=== PATIENT | female | born 1980 | race Caucasian/White ===

== ENCOUNTER 2017-05-01 10:43 | Observation (INO) | payer MEDICAID, SELFPAY ==
--- NOTE | 2017-04-29 23:30 | HP.PCM_ITS ---
History and Physical Date of Admission: 04/30/17 Referring Provider: Annie Sherman PA-C Primary Provider: Annie Sherman PA-C CC: evaluation hidradenitis. History of Present Illness: 36 year old woman presents with long standing hidradenitis involving her bilateral inguinal and axillary areas and left breast area in the inframammary crease area. She had recent surgery in the left inguinal area on 01/17/17 where she underwent surgical preparation left inguinal area with excision hidradenitis (147 cm2). The resultant wound healed with Doxycycline antibiotics and wound care with the VAC and Silver dressing changes. She now states her left axillary hidradenitis is most bothersome to her at this point, and she presents today for surgical excision in this area. Past Medical History: Anemia Back Problems Bladder/Urinary Tract Inf Diabetes Emotional Problems Headaches/Migraines Hives Hidradenitis Pneumonia Past Surgical History: 10-12-2014 surgical preparation left inguinal area with excision hidradenitis (147 cm2) - 01/17/17 MEDICATIONS: Ibuprofen. MVI. ALLERGIES: Adhesive Tape. Family History Summary: Mother (biol.) - Has Family History of Anemia Mother (biol.) - Has Family History of Anxiety Mother (biol.) - Has Family History of Breast Cancer Mother (biol.) - Has Family History of Hypertension Father (biol.) - Has Family History of Diabetes Father (biol.) - Has Family History of Hypertension Father (biol.) - Has Family History of Kidney/Renal Disease Father (biol.) - Has Family History of Seizures General Comments - FH: negative for skin cancer. Social History: Alcohol Use - yes Drug Use - no Smoking History: Patient currently smokes every day. Regular Exercise - no Review of Systems General Denies fever, fatigue and weight loss. Eyes Denies eye pain. ENT Denies nasal congestion and sore throat. CV Denies chest pain or discomfort, fatigue, lightheadedness and shortness of breath with exertion. Resp Denies cough and shortness of breath. patient is a smoker. GI Denies nausea, vomiting, diarrhea and constipation. Denies blood in urine and urinary frequency. MS Complains of back pain. Denies joint pain, stiffness, muscle weakness and arthritis. Derm Complains of suspicious lesions. Denies skin cancer. has bilateral inguinal and axillary hidradenitis and left breast hidradenitis in the inframammary crease. Neuro Complains of headaches. Psych Complains of anxiety. Denies depression. Endo Denies excessive urination and excessive thirst. Heme Denies bleeding and abnormal bruising. Allergy Complains of hives or rash. Denies seasonal allergies. Vital Signs: Patient Profile: 36 Years Old Female Height: 63 inches Weight: 172 pounds BMI: 30.47 Physical Exam General: well developed, well nourished, in no acute distress. Head: normocephalic and atraumatic. Eyes: PERRL/EOM intact, conjunctiva and sclera clear. Neck: no masses, thyromegaly, or abnormal cervical nodes. Breasts: area of hidradenitis in the left breast inframammary crease. Some erythema. Measures 4 cm. Slightly tender to palpation. No purulent drainage. Lungs: clear bilaterally to auscultation. Heart: non-displaced PMI, chest non-tender; regular rate and rhythm, S1, S2 without murmurs, rubs, or gallops Abdomen: normal bowel sounds; no hepatosplenomegaly no ventral,umbilical hernias or masses noted. had bilateral inguinal hidradenitis with some extension into the pubic area. On the left there is a healed scar from recent surgical excision. There is induration on the right. Tenderness to palpation. No purulent drainage. Measures 10 cm in the right inguinal area. Pulses: pulses normal in all 4 extremities. Extremities: no clubbing, cyanosis, edema. Has bilateral axillary hidradenitis. Induration is present. Some erythema. No purulent drainage. Tenderness to palpation. More so on the left. The left axillary area measures 10 cm and the right axillary area measures 4 cm. Neurologic: cranial nerves II-XII grossly intact. Skin: no rashes. Cervical Nodes: no significant adenopathy. Axillary Nodes: no significant adenopathy. Hard to assess with the amount of tenderness and induration. Inguinal Nodes: no significant adenopathy. Hard to assess with the amount of tenderness and induration. Psych: alert and cooperative; normal mood and affect; normal attention span and concentration. Assessment and Plan 1. Bilateral axillary hidradenitis, worse on the left. 2. Right inguinal hidradenitis. 3. Left breast hidradenitis in inframammary crease. 4. Recent excision left inguinal hidradenitis. 5. Smoker. Recommend excision of her left axillary hidradenitis and send it to Pathology for analysis to rule out carcinoma. Will also send tissue to Microbiology for culture. A positive culture may necessitate antibiotic modification. At surgery, will leave the wound open and proceed with wound care with the VAC or Silver dressing changes. Post discharge will followup at the Wound Center. If there is a plateau in the healing process, will proceed with delayed closure with skin grafting. Surgery will be done under general anesthesia with an overnight stay in the hospital. The patient was informed of the risks and complications of the procedure including alternatives to surgery. These were discussed with the patient personally. The patient voices understanding and wishes to proceed. Some of the risks and complications were included in a form from the [employer]. Encouraged the patient to stop smoking as it may have deleterious effects on wound healing.
[2017-04-30] VITALS (10 sets, daily range): BP systolic 118–144; BP diastolic 70–102; PULSE 70–102; RESP 16–18; TEMP 36.6–38; O2SAT 98–100; BMI 34.3
--- NOTE | 2017-04-30 | HID_PTH ---
PATIENT: CORINNE ADEN LOC: MS2 U#:[id number] AGE/SX: 36/F ROOM: MS216 RE05/01/[address]: Dr. Zi Benedict MD : 1980 BED: 1 DIS: 05/02/2017 SPEC #: [id number] RECD: 04/30/17 14:45 STATUS: ALEXA REAlyssa #: [id number] FREDDY: 04/30/17 00:[address]: Zi Benedict DEPT: SURGICAL PATHOLOGY RECD BY: Chucho Durán ENTERED: 04/30/17 14:45 SP TYPE: [facility] TROTTER DR: Dr. Edwin Collins MD Tissues: Axilla, NOS Procedures: Surgery Specimen Level III HEADER OPERATION: Excision hidradenitis, axilla PRE-OP DIAGNOSIS: Left axillary hidradenitis TISSUE SUBMITTED: Left axillary hidradenitis MICROSCOPIC DIAGNOSIS Skin and soft tissue of left axilla, excision: Consistent with hidradenitis. AM:nancy 05/01/17 MICROSCOPIC DESCRIPTION Slides are reviewed. GROSS DESCRIPTION Received in fixative is one container labeled with the patient's name and designated left axillary hidradenitis. The specimen consists of two irregular fragments of light babcock skin with attached yellow fatty tissue. The smaller fragment measures 4 x 1.5 x 1.5 cm. The larger fragment measures 6 x 4.5 x 1.8 cm. Serial sections do not reveal mass lesions. D[employer] sections are submitted in three cassettes. / AM:nancy 04/30/17 TC:5 CPT: 56517
[2017-04-30 07:02] LABS: Internal QC Validated? YES +Cl - CLEAR BKGD; Pregnancy, Urine Negative Negative
[2017-04-30] MEDS: Cefazolin 2 GM in 0.9% Normal Saline 100 ML IV (08:10)
--- NOTE | 2017-04-30 08:42 | PCM.IMDPSTOP ---
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 Left axillary hidradenitis. 2. Smoker. Post-Operative Diagnosis: Same. Surgery/Procedure Performed:: Surgical preparation left axilla with excision hidradenitis (53.5 cm2). Description of Surgical Findings:: 36 year old woman presents with long standing hidradenitis involving her bilateral inguinal and axillary areas and left breast area in the inframammary crease area. She had recent surgery in the left inguinal area on 01/17/17 where she underwent surgical preparation left inguinal area with excision hidradenitis (147 cm2). The resultant wound healed with Doxycycline antibiotics and wound care with the VAC and Silver dressing changes. She now states her left axillary hidradenitis is most bothersome to her at this point, and she presents today for surgical excision in this area. Today the patient underwent surgical preparation left axilla with excision hidradenitis (53.5 cm2). Size of defect left axilla, superior - 4 x 4 x 2 cm. Size of defect left axilla, inferior - 7.5 x 5 x 3 cm. Length of intervening skin bridge - 4 cm. Estimated Blood Loss: 25 ml. Specimen's removed: Left axillary hidradenitis tissue to Pathology and Microbiology. Drains: None. Type of Anesthesia:: General - Admit VTE Documentation VTE Present on Admission: No VTE Mechan Device Prophylaxis: SCD's VTE Pharm Prophylaxis ordered?: No
--- NOTE | 2017-04-30 11:37 | CASEMGMT ---
DC PLAN: referral received for dc planning of home on discharge with wound vac, [facility]. Referral faxed to [facility]. Will continue to follow and assist with dc planning. Merari SCHMITTN RN ACM
[2017-04-30] MEDS: Docusate Sodium 100 MG Capsule PO ×2 (11:48→20:16)
[2017-04-30] MEDS: Multivitamins,Therapeutic Tablet 1 TABLET PO (11:48)
[2017-04-30] MEDS: oxyCODONE 5 MG Tablet 10 MG PO ×3 (11:48→20:15)
[2017-04-30] MEDS: Cefazolin 1 GM/50 ML BAG IV ×2 (13:36→21:58)
[2017-04-30] MEDS: Mag Hydrox/Al Hydrox/Simeth 30 ML UDC PO ×2 (16:36→21:58)
[2017-04-30] MEDS: diazePAM 5 MG Tablet PO (20:15)
--- NOTE | 2017-04-30 20:39 | PCM.OPRPT ---
Report of Operation Date of Procedure: 04/30/17 Pre-Operative Diagnosis: 1. Left axillary hidradenitis. 2. Smoker. Post-Operative Diagnosis: Same. Surgery/Procedure Performed:: Surgical preparation left axilla with excision hidradenitis (53.5 cm2). Description of Surgical Findings:: 36 year old woman presents with long standing hidradenitis involving her bilateral inguinal and axillary areas and left breast area in the inframammary crease area. She had recent surgery in the left inguinal area on 01/17/17 where she underwent surgical preparation left inguinal area with excision hidradenitis (147 cm2). The resultant wound healed with Doxycycline antibiotics and wound care with the VAC and Silver dressing changes. She now states her left axillary hidradenitis is most bothersome to her at this point, and she presents today for surgical excision in this area. The patient was informed of the risks and complications of the procedure including alternatives to surgery. These were discussed with the patient personally. The patient voices understanding and wishes to proceed. Some of the risks and complications were included in a form from the [employer]. Encouraged the patient to stop smoking as it may have deleterious effects on wound healing. Size of defect left axilla, superior - 4 x 4 x 2 cm. Size of defect left axilla, inferior - 7.5 x 5 x 3 cm. Length of intervening skin bridge - 4 cm. rendering equipment tender: None Type of Anesthesia:: General Specimen's removed: Left axillary hidradenitis tissue to Pathology and Microbiology. Drains: None. Estimated Blood Loss (mL): 25 ml. Description of Procedure: Patient was taken to OR in supine position and was placed under general anesthesia. Her left axillary area was prepped and draped in the usual fashion. SCD's were placed for DVT prophylaxis. Perioperative antibiotics were given intravenously. There were two areas of indurated symptomatic hidradenitis with an intervening skin bridge that clinically appears soft and unaffected by disease at the present time. I will excise both the superior area and inferior area of hidradenitis and leave the skin bridge to allow easier healing. It should also decrease the risk of skin contracture in the future. Using a scalpel, I excised both areas of hidradenitis that were red and tender and indurated. Some fat necrosis was seen in the subcutaneous tissue. No gross pus was seen. Excision extended down to the muscle. No involvement of the muscle was seen. Some of the tissue was sent to Microbiology for culture. The rest of the hidradenitis tissue was sent to Pathology for analysis to rule out carcinoma. Hemostasis obtained with electrocautery. The wound was irrigated with saline. The size of the defects after excision of the hidradenitis was 4 x 4 x 2 cm for the superior axillary wound and 7.5 x 5 x 3 cm for the inferior axillary wound. The intervening skin bridge measures 4 cm. The wounds were dressed with Mepitel nonadherent dressing followed by Kerlix gauze with Betadine followed by a dry Kerlix gauze and an ABD pad followed by an MICHELLE wrap for compression. Patient tolerated the procedure well and was sent to PACU in satisfactory condition. She will be sent upstairs for a surgical observation overnight stay in the hospital. The VAC will be applied tomorrow. Once the VAC is approved and she is tolerating po analgesia, she can go home. She will followup at the Wound Center. She will be sent home on antibiotics and pain medication and Valium for spasm while on the VAC. If there is a plateau in the healing process, can proceed with delayed closure with skin grafting. Grafts/Implants Used: None. - Complications None. - Admit VTE Documentation VTE Present on Admission: No VTE Mechan Device Prophylaxis: SCD's VTE Pharm Prophylaxis ordered?: No Code Visit Surgery Charges CPT - 75527 ICD-10 - L73.2, S41.102A, F17.200
[2017-04-30] MEDS: Lactated Ringers 1,000 ML 60 ML IV (21:58)
[2017-04-30] MEDS: 0.9% NaCl Peripheral Flush Adult/Peds IV (21:58)
[2017-05-01] MEDS: oxyCODONE 5 MG Tablet 10 MG PO ×5 (01:26→18:48)
[2017-05-01 01:46] VITALS: BP 115/81; PULSE 74; RESP 16; TEMP 36.8; O2SAT 99
[2017-05-01] MEDS: diazePAM 5 MG Tablet PO ×2 (05:26→12:41)
[2017-05-01] MEDS: Cefazolin 1 GM/50 ML BAG IV ×3 (05:27→21:52)
[2017-05-01 05:30] VITALS: BP 107/63; PULSE 65; RESP 16; TEMP 36.6; O2SAT 99
[2017-05-01] MEDS: 0.9% NaCl Peripheral Flush Adult/Peds IV ×2 (07:20→21:45)
[2017-05-01 07:54] LABS: Anion Gap 8 (5-15); BUN 13 mg/dL (7-18); Calcium,Total 8.3 mg/dL (8.5-10.1); Chloride 103 mmol/L (98-107); Creatinine, Serum 0.68 mg/dL (0.55-1.02); EST Glomerular Filtration Rate 102 mL/min (>60); Est Glom Filt Rate - Afr Amer 124 mL/min (>60); Estimated Creatinine Clearance 81.36 ml/min; Glucose 104 mg/dL (70-110); Potassium 4.1 mmol/L (3.5-5.1); Prealbumin 29.8 mg/dL (20.0-40.0); Sodium Level 135 mmol/L (136-145)
[2017-05-01 08:06] LABS: Hematocrit 35.8 % (37-47); Hemoglobin 12.1 g/dl (12.0-15.0); Mean Corp Hgb Conc 33.8 g/gl (32-36); Mean Corpuscular Hgb 30.9 pg (27.0-32.0); Mean Corpuscular Volume 91.6 fL (81-99); Mean Platelet Vol. 9.4 fl (6.2-12.0); Platelet Count 278 K/mm3 (150-450); RBC Distribution Width CV 13.1 % (11.6-14.6); RBC Distribution Width SD 43.4 fl (35.1-43.9); Red Blood Count 3.91 M/mm3 (4.2-5.4); White Blood Count 9.4 K/mm3 (4.4-11.0)
[2017-05-01 08:18] LABS: Scan Indicated on CBC? Y/N NO
[2017-05-01] MEDS: Docusate Sodium 100 MG Capsule PO ×2 (09:23→21:56)
[2017-05-01] MEDS: Multivitamins,Therapeutic Tablet 1 TABLET PO (09:23)
--- NOTE | 2017-05-01 10:35 | CASEMGMT ---
[facility] intake called to notify they cannot accept pt. RN CM intro role of CM to patient in room. Discussed alternative HHS. Pt does not have preference. Referral faxed to [facility] Intake dept. [facility]- phone ; fax . will await their determination. -Pt states she has assistance @ home and transportation to wound clinic, physician offices. Merari STAFFORD RN ACM
[2017-05-01] MEDS: Mag Hydrox/Al Hydrox/Simeth 30 ML UDC PO (10:39)
--- NOTE | 2017-05-01 11:26 | NURSING ---
wound photo: left axilla
[2017-05-01 14:30] VITALS: BP 129/76; PULSE 78; RESP 16; TEMP 37.1; O2SAT 99
[2017-05-01] MEDS: Lactated Ringers 1,000 ML 60 ML IV (14:34)
--- NOTE | 2017-05-01 16:28 | CASEMGMT ---
Attempted calls x 2 to [facility] [place]- message left. Have not confirmed home health arrangements for dc yet. [facility] nurse updated. Merari VIDAL BSN ACM
--- NOTE | 2017-05-01 16:55 | PCM.PN.SRG ---
Subjective: Postop #1 Patient is resting comfortably. VAC was applied today. - Physical Exam General: Alert, Oriented x3 HEENT: PERRLA, EOMI Neck: Supple Lungs: Clear to auscultation Cardiovascular: Regular rate, Regular Rhythm Abdomen: Soft, Non-Distended Extremities: No clubbing, No cyanosis, Edema - mild edema in left upper extremity., Peripheral Pulses Normal Skin: Ulcer/ Wound - left axillary wounds are stable. No bleeding. VAC applied today. Awaiting VAC approval. Neurological: Cranial nerves II-XII grossly intact Psych/Mental Status: Normal Affect, Appropriate Vital Signs Temp Pulse Resp BP Pulse Ox 98.7 F 78 16 129/76 H 99 05/01/17 14:30 05/01/17 14:30 05/01/17 14:30 05/01/17 14:30 05/01/17 14:30 Oxygen Delivery Method Room Air Weight: 175 lb 11.335 oz Body Mass Index (BMI) 34.3 Intake and Output for Last 24 Hours 04/29/17 04/30/17 05/01/17 23:59 23:59 23:59 Intake Total 5556 / 5556 2791 / 2791 Output Total 900 / 900 3900 / 3900 Balance 4656 / 4656 -1109 / -1109 Microbiology Past 72 Hours 04/30/17 08:33 Gram Stain - Final Tissue - Incision site Wound Culture - Preliminary No growth-Final to follow Laboratory Tests Past 24 Hrs 05/01/17 05/01/17 06:30 06:30 WBC 9.4 RBC 3.91 L Hgb 12.1 Hct 35.8 L MCV 91.6 MCH 30.9 MCHC 33.8 RDW 13.1 RDW Differential 43.4 Plt Count 278 MPV 9.4 Sodium 135 L Potassium 4.1 Chloride 103 Carbon Dioxide 24.0 Anion Gap 8 BUN 13 Creatinine 0.68 Estim Creat Clear Calc 81.36 Est GFR (MDRD) Af Amer 124 Est GFR (MDRD) Non-Af 102 BUN/Creatinine Ratio 19.0 Glucose 104 Calcium 8.3 L Prealbumin 29.8 Assessment/Plan 1. Left axillary hidradenitis, s/p excision. 2. Smoker. VAC applied today without difficulty. Awaiting VAC approval. Continue IV Ancef. Will send home on Doxycycline. Operative cultures are pending. When cultures are available, antibiotic modification may be necessary. Prealbumin was 29.8. Encourage nutritional supplementation with protein to help the healing process. Anticipate discharge home tomorrow after VAC approved. Followup at Wound Center in 2-3 weeks. Encouraged the patient to stop smoking as it may have deleterious effects on wound healing.
[2017-05-01 21:50] VITALS: BP 138/76; PULSE 76; RESP 20; TEMP 37.1; O2SAT 100
[2017-05-02] MEDS: oxyCODONE 5 MG Tablet 10 MG PO ×3 (01:25→10:34)
[2017-05-02] MEDS: Ondansetron 4 MG/2 ML Vial IV (05:46)
[2017-05-02] MEDS: 0.9% NaCl Peripheral Flush Adult/Peds IV (05:46)
[2017-05-02] MEDS: Cefazolin 1 GM/50 ML BAG IV (05:46)
[2017-05-02 05:49] VITALS: BP 129/82; PULSE 88; RESP 18; TEMP 37.1; O2SAT 99
[2017-05-02 08:40] VITALS: BP 126/90; PULSE 78; RESP 16; TEMP 36.9; O2SAT 99
[2017-05-02] MEDS: Docusate Sodium 100 MG Capsule PO (08:44)
[2017-05-02] MEDS: Multivitamins,Therapeutic Tablet 1 TABLET PO (08:44)
[2017-05-02] MEDS: diazePAM 5 MG Tablet PO (08:48)
--- NOTE | 2017-05-02 10:05 | CASEMGMT ---
Call received from [facility] @ [facility] [place] . They are able to accept pt with start of care on Saturday for wound vac changes. Pt updated. Phone # placed on DC appointments for pt. Merari SCHMITTN RN ACM
--- NOTE | 2017-05-02 12:12 | PN.SURG_ITS ---
Subjective: Postop #2 Patient is resting comfortably. VAC has been approved. Tolerating po analgesia. - Physical Exam General: Alert, Oriented x3 HEENT: PERRLA, EOMI Neck: Supple Lungs: Clear to auscultation Cardiovascular: Regular rate, Regular Rhythm Abdomen: Soft, Non-Distended Skin: Ulcer/ Wound - left axillary wounds stable. VAC in place. Minimal drainage in the canister. Neurological: Cranial nerves II-XII grossly intact Psych/Mental Status: Normal Affect, Appropriate Vital Signs Temp Pulse Resp BP Pulse Ox 98.5 F 78 16 126/90 H 99 05/02/17 08:40 05/02/17 08:40 05/02/17 08:40 05/02/17 08:40 05/02/17 08:40 Oxygen Delivery Method Room Air Weight: 175 lb 11.335 oz Body Mass Index (BMI) 34.3 Intake and Output for Last 24 Hours 04/30/17 05/01/17 05/02/17 23:59 23:59 23:59 Intake Total 5556 / 5556 3698 / 3698 6918 / 6918 Output Total 900 / 900 5300 / 5300 4250 / 4250 Balance 4656 / 4656 -1602 / -1602 2668 / 2668 Microbiology Past 72 Hours 04/30/17 08:33 Gram Stain - Final Tissue - Incision site Wound Culture - Preliminary Gram positive organism Assessment/Plan 1. Left axillary hidradenitis, s/p excision. 2. Smoker. VAC in place. Minimal drainage in the canister. VAC has been approved. Will discharge home on Doxycycline. Operative cultures show Gram positive organism thus far. When cultures are available, antibiotic modification may be necessary. Prealbumin was 29.8. Encourage nutritional supplementation with protein to help the healing process. Discharge home today. Wrote script for Doxycycline for 14 days (28 tabs) and 2 refills. Wrote scripts for Percocet for pain (50 tabs) and for Valium for spasm (40 tabs) . Wrote scripts for Phenergan for nausea (30 tabs) and a refill and for Colace for constipation (60 tabs). Followup at Wound Center in 2-3 weeks. Encouraged the patient to stop smoking as it may have deleterious effects on wound healing.
--- NOTE | 2017-05-02 12:19 | PCM.DC ---
- Discharge Diagnoses Current Active Problems: Current Active and Chronic Problems Smoker (Chronic) Hidradenitis (Chronic) left axillary hidradenitis Open wound of left axillary region (Acute) open surgical hidradenitis wound left axillary area You will use the following diet at home:: No restrictions, Other - encourage nutritional supplementation with protein to help the healing process. Discharge Activity: May not drive while taking narcotic pain medications., May Shower - on the days the vac is changed., - - no heavy lifting. elevate left arm. May shower in (days): 2 - may shower on the days the vac is changed. May resume sexual activity in: No Restrictions Weight Bearing Status: Weight bearing as tolerated Lifting Restrictions: 20 lbs. Keep extremity elevated above heart level: Left Arm Call your doctor if your incision/area has: Continuous Slow Oozing, Sudden Increased Bleeding, Increased Pain/ Swelling, Increased Redness, Foul Smelling Discharge, Swelling at the incision site Call your doctor if you observe: Fever of 101 or Higher, Coldness, Increased Pain, Shortness of breath, Chest pain, Calf discomfort, Uncontrolled pain Suture Line Care: - - vac changes three times per week. Change Dressing in (Days):: 2 - vac changes three times per week. Additional Dressing/Incision Instructions:: Home Health to assist with vac changes to left axilla three times per week at 150 mmHg continuous suction. Allergies/Adverse Reactions: Allergies adhesive tape Allergy (Verified 04/25/17 08:22) Rash Medications to take at Discharge Ibuprofen 200 mg PO PRN PRN 01/11/17 Multivitamin [Multiple Vitamins] 1 each PO DAILY 04/25/17 Diazepam [Valium] 5 mg PO 4X/DAY PRN PRN 10 Days #40 tab 05/02/17 Docusate Sodium [Colace] 100 mg PO BID #60 cap 05/02/17 Doxycycline 100 mg PO BID #28 cap 05/02/17 Mag Hydrox/Al Hydrox/Simeth [Mylanta II] 30 ml PO Q4H PRN PRN udc 05/02/17 Oxycodone HCl/Acetaminophen [Percocet 5/325] 1 - 2 tab PO 4X/DAY PRN PRN 7 Days #50 tab 05/02/17 ProMETHAzine [Phenergan] 25 mg PO 4X/DAY PRN PRN #30 tab 05/02/17 The following prescriptions were given: Diazepam [Valium] 5 mg PO 4X/DAY PRN PRN 10 Days #40 tab PRN Reason: Spasms Oxycodone HCl/Acetaminophen [Percocet 5/325] 1 - 2 tab PO 4X/DAY PRN PRN 7 Days #50 tab PRN Reason: Pain ProMETHAzine [Phenergan] 25 mg PO 4X/DAY PRN PRN #30 tab PRN Reason: NAUSEA/VOMITING Docusate Sodium [Colace] 100 mg PO BID #60 cap Doxycycline 100 mg PO BID #28 cap Primary Care Physician: Edwin Collins MD [Primary Care Provider] - Please Follow Up With: Zi Benedict MD When: 2-3 weeks at wound center. call [phone] for appt. Please Follow Up With: [facility] When: Saturday Proposed Discharge Date: 05/02/17
--- NOTE | 2017-05-02 12:26 | DCINST_ITS ---
- Discharge Diagnoses Current Active Problems: Current Active and Chronic Problems Smoker (Chronic) Hidradenitis (Chronic) left axillary hidradenitis Open wound of left axillary region (Acute) open surgical hidradenitis wound left axillary area You will use the following diet at home:: No restrictions, Other - encourage nutritional supplementation with protein to help the healing process. Discharge Activity: May not drive while taking narcotic pain medications., May Shower - on the days the vac is changed., - - no heavy lifting. elevate left arm. May shower in (days): 2 - may shower on the days the vac is changed. May resume sexual activity in: No Restrictions Weight Bearing Status: Weight bearing as tolerated Lifting Restrictions: 20 lbs. Keep extremity elevated above heart level: Left Arm Call your doctor if your incision/area has: Continuous Slow Oozing, Sudden Increased Bleeding, Increased Pain/ Swelling, Increased Redness, Foul Smelling Discharge, Swelling at the incision site Call your doctor if you observe: Fever of 101 or Higher, Coldness, Increased Pain, Shortness of breath, Chest pain, Calf discomfort, Uncontrolled pain Suture Line Care: - - vac changes three times per week. Change Dressing in (Days):: 2 - vac changes three times per week. Additional Dressing/Incision Instructions:: Home Health to assist with vac changes to left axilla three times per week at 150 mmHg continuous suction. Allergies/Adverse Reactions: Allergies adhesive tape Allergy (Verified 04/25/17 08:22) Rash Medications to take at Discharge Ibuprofen 200 mg PO PRN PRN 01/11/17 Multivitamin [Multiple Vitamins] 1 each PO DAILY 04/25/17 Diazepam [Valium] 5 mg PO 4X/DAY PRN PRN 10 Days #40 tab 05/02/17 Docusate Sodium [Colace] 100 mg PO BID #60 cap 05/02/17 Doxycycline 100 mg PO BID #28 cap 05/02/17 Mag Hydrox/Al Hydrox/Simeth [Mylanta II] 30 ml PO Q4H PRN PRN udc 05/02/17 Oxycodone HCl/Acetaminophen [Percocet 5/325] 1 - 2 tab PO 4X/DAY PRN PRN 7 Days #50 tab 05/02/17 ProMETHAzine [Phenergan] 25 mg PO 4X/DAY PRN PRN #30 tab 05/02/17 The following prescriptions were given: Diazepam [Valium] 5 mg PO 4X/DAY PRN PRN 10 Days #40 tab PRN Reason: Spasms Oxycodone HCl/Acetaminophen [Percocet 5/325] 1 - 2 tab PO 4X/DAY PRN PRN 7 Days #50 tab PRN Reason: Pain ProMETHAzine [Phenergan] 25 mg PO 4X/DAY PRN PRN #30 tab PRN Reason: NAUSEA/VOMITING Docusate Sodium [Colace] 100 mg PO BID #60 cap Doxycycline 100 mg PO BID #28 cap Primary Care Physician: Edwin Collins MD [Primary Care Provider] - Please Follow Up With: Zi Benedict MD When: 2-3 weeks at wound center. call [phone] for appt. Please Follow Up With: [facility] When: Saturday Proposed Discharge Date: 05/02/17
[2017-05-02] MEDS: Ibuprofen 600 MG Tablet PO (13:08)
[2017-05-02 13:22] VITALS: BP 121/81; PULSE 84; RESP 16; TEMP 37.2; O2SAT 100
== END 2017-05-02 14:10 | disposition home health service (06) ==
LOC: SDC 10:57
PROVIDERS: Anesthesiology; Admitting Provider Surgery; Family Provider Family Medicine; PCP Family Medicine; Visit Provider Surgery
PROC: (CPT 11450; principal; 2017-04-30 07:45)
DX: L73.2 Hidradenitis suppurativa (principal); F17.200 Nicotine dependence, unspecified, uncomplicated; E11.9 Type 2 diabetes mellitus without complications; K21.9 Gastro-esophageal reflux disease without esophagitis
CPT/HCPCS: 00400; 11450; 36415; 80048; 81025; 84134; 85027; 87070; 87075; 87077; 87102; 87186; 87205; 87206; 88304; 96365; 96366; 96375; 96376; 99218; J7120; A4216; G0378; G0379; J2405

== ENCOUNTER 2017-05-18 05:22 | Emergency (ER) | payer MEDICAID, SELFPAY ==
[2017-05-18 05:23] VITALS: BP 123/79; PULSE 85; RESP 17; TEMP 36.8; O2SAT 98; BMI 36.7
--- NOTE | 2017-05-18 06:15 | ED.VISSUMM ---
- ER Visit Summary Date of Service: 05/18/17 Chief Complaint: [] Malfunctioning wound VAC. History of Present Illness: The patient is a 37 F [] patient presents after her wound VAC tubing clotted and seems to be no longer functioning. She is here for a wound evaluation and/or wound VAC replacement. Denies fevers. Denies any drainage. Denies any significant increased discomfort. Physical Examination: [] Wound VAC was removed and wound appears to be healing very nicely. No surrounding cellulitis or significant drainage. Remainder of exam is unremarkable. Test Results: [] None Emergency Department Course and Treatment: [] Patient had wound VAC removed and a sterile wet-to-dry dressing was applied. Patient was amenable to this plan. She reports the home health aide who is capable of replacing the wound VAC will be at her house in approximately 12 hours. Treatment Plan: [] Wet-to-dry dressing with removal of wound VAC. Disposition: [] Discharge, stable Impression: [] History hidradenitis suppurativa Wound check This note was generated with [employer] dictation software. It may contain incorrect words, spelling, and punctuation that were not noted in review of the chart prior to signing ED Disposition - Plan for ED Patient: Chief Complaint: Wound Referrals: Edwin Collins MD [Primary Care Provider] -
--- NOTE | 2017-05-18 06:20 | ED.DEP ---
ED Disposition - Plan for ED Patient: Disposition: Home or Assisted Living Chief Complaint: Wound Instructions: Wound Care, Discharge Instructions: Caring for Your Hemovac Drainage Tube Referrals: Edwin Collins MD [Primary Care Provider] -
--- NOTE | 2017-05-18 06:43 | ED.RN ---
DISCHARGE INSTRUCTIONS GIVEN TO AND REVIEWED WITH PATIENT, PATIENT DENIES QUESTIONS OR CONCERNS AND VOICES UNDERSTANDING OF DISCHARGE INSTRUCTIONS. PT AMBULATES OUT OF ROOM WITHOUT DIFFICULTY.
== END 2017-05-18 06:44 | disposition home or self-care (01) ==
PROVIDERS: Emergency Provider Emergency Medicine; Family Provider Family Medicine; PCP Family Medicine
DX: L73.2 Hidradenitis suppurativa (principal); Z48.00 Encounter for change or removal of nonsurgical wound dressing; Z46.89 Encounter for fitting and adjustment of other specified devices; E66.9 Obesity, unspecified; F41.9 Anxiety disorder, unspecified; Z72.0 Tobacco use; Z79.899 Other long term (current) drug therapy
CPT/HCPCS: 99282

== ENCOUNTER 2017-06-03 09:30 | Outpatient (RCR) | payer MEDICAID, SELFPAY ==
[2017-05-20 10:24] VITALS: BP 130/78; PULSE 85; RESP 20; TEMP 37.6; BMI 75.3
[2017-05-20 12:07] VITALS: BMI 75.3
--- NOTE | 2017-05-20 16:45 | PCM.WC.PN ---
Type of Wound Date of Service: 05/20/17 Chief Complaint: Open surgical hidradenitis wound left inguinal area. History of Wound: Surgery 01/17/17 - Surgical preparation left inguinal area with excision hidradenitis (147 cm2). Wound care - VAC. Operative culture - negative. She was treated with Doxycycline perioperatively. Prealbumin from 01/18/17 was 23.5. She takes nutritional supplementation with protein to help the healing process. Today she denies fever. Her appetite is good. - Physical Exam Vital Signs Temp Pulse Resp BP 99.6 F H 85 20 H 130/78 H 05/20/17 10:24 05/20/17 10:24 05/20/17 10:24 05/20/17 10:24 Wound Measurements and Assessment - Nurse 1 - General Ulcer Measurement Start: 05/20/17 10:24 Freq: Status: Active Protocol: Activity Type Activity Date Activity User E-Sign Co-Sign Detail Recorded Client Recorded Date Recorded By Document 05/20/17 10:24 DL [id number] 05/20/17 10:55 DL Document 05/20/17 12:07 DL [id number] 05/20/17 12:15 DL 05/20/17 05/20/17 10:24 12:07 Wound Center Nurse 1 [Ulcer Assessment Protocol: .WD.LOC] #3 L Axilla Inf -Current Size (cm) - Length 1.2 -Current Size (cm) - Width 6.4 -Current Size (cm) - Depth 0.2 -Total Square Cm 7.68 -Photo Taken Yes -Exudate Amt Medium (34-66%) Medium (34-66%) -Exudate Type Serosanguineous Serosanguineous -Wound Margin Distinct, Outline Attached -Granulation Amt Large (67-100%) Medium (34-66%) -Granulation Quality Red Raymond Red -Necrosis Amt None Present (0 Medium (34-66%) %) -Structure Exposed N/A -Texture (Lashell-wound Skin Appearance) No Abnormality -Moisture (Lashell-wound Skin Appearance No Abnormality ) -Color (Lashell-wound Skin Appearance) No Abnormality -Temperature (Lashell-wound Skin No Abnormality Appearance) (Pt Warm) -Tenderness on Palpation (Lashell-wound Yes Skin Appearance) -Ulcer Cleansing Wound Cleanser -Foul Odor after Cleansing No No -Anesthetic Used 4% Lidocaine Solution #2 L Axilla Sup -Current Size (cm) - Length 1.8 -Current Size (cm) - Width 3.5 -Current Size (cm) - Depth 0.7 -Total Square Cm 6.30 -Photo Taken Yes -Classification - Thickness Full Thickness without Exposed Support Structure -Exudate Amt Medium (34-66%) -Exudate Type Serosanguineous -Wound Margin Distinct, Outline Attached -Granulation Amt Large (67-100%) -Granulation Quality Red -Necrosis Amt None Present (0 %) -Structure Exposed N/A -Texture (Lashell-wound Skin Appearance) No Abnormality -Moisture (Lashell-wound Skin Appearance No Abnormality ) -Color (Lashell-wound Skin Appearance) No Abnormality -Tenderness on Palpation (Lashell-wound Yes Skin Appearance) -Ulcer Cleansing Wound Cleanser -Foul Odor after Cleansing No -Anesthetic Used 4% Lidocaine Solution WC - Nurse 2 - General Ulcer CM Notes Start: 05/20/17 10:24 Freq: Status: Active Protocol: Activity Type Activity Date Activity User E-Sign Co-Sign Detail Recorded Client Recorded Date Recorded By Document 05/20/17 11:10 [id number] 05/20/17 11:11 05/20/17 11:10 Wound Center Nurse 2 [Procedure/Treatment] -Time 11:10 -Correct Patient Yes -Correct Side, Site, Position Yes -Correct Procedure Yes -Procedure Performed Yes -Type of Procedure Debridement -Clinical Debridement Subcutaneous -Post Debridement Size (cm) - Length 1.2 -Post Debridement Size (cm) - Width 6.5 -Post Debridement Size (cm) - Depth 0.2 -Total Square Cm 7.80 -Wound/Ulcer Outcome Not Healed -Ulcer Cleansing Rinsed/ Irrigated with Saline -Foul Odor after Cleansing No -Bioengineered Tissue No -Bleeding Controlled with Pressure -Treatment Response Procedure Tolerated Well #2 L Axilla Sup -Time 11:10 -Correct Patient Yes -Correct Side, Site, Position Yes -Correct Procedure Yes -Procedure Performed Yes -Type of Procedure Debridement -Clinical Debridement Subcutaneous -Post Debridement Size (cm) - Length 1.8 -Post Debridement Size (cm) - Width 3.6 -Post Debridement Size (cm) - Depth 0.7 -Total Square Cm 6.48 -Wound/Ulcer Outcome Not Healed -Ulcer Cleansing Rinsed/ Irrigated with Saline -Foul Odor after Cleansing No -Bioengineered Tissue No -Bleeding Controlled with Pressure -Treatment Response Procedure Tolerated Well [See Physician Procedure note for Specifics] Pain Scale: 0-10 Numeric [Pain] -Is Patient Pain Free? Yes Debridement Note Post-Debridement Measurements/Treatment WC - Nurse 2 - General Ulcer CM Notes Start: 05/20/17 10:24 Freq: Status: Active Protocol: Activity Type Activity Date Activity User E-Sign Co-Sign Detail Recorded Client Recorded Date Recorded By Document 05/20/17 11:10 [email or web address] [id number] 05/20/17 11:11 [email or web address] 05/20/17 11:10 Wound Center Nurse 2 #3 L Axilla Inf -Time 11:10 -Correct Patient Yes -Correct Side, Site, Position Yes -Correct Procedure Yes -Procedure Performed Yes -Type of Procedure Debridement -Clinical Debridement Subcutaneous -Post Debridement Size (cm) - Length 1.2 -Post Debridement Size (cm) - Width 6.5 -Post Debridement Size (cm) - Depth 0.2 -Total Square Cm 7.80 -Wound/Ulcer Outcome Not Healed -Ulcer Cleansing Rinsed/ Irrigated with Saline -Foul Odor after Cleansing No -Bioengineered Tissue No -Bleeding Controlled with Pressure -Treatment Response Procedure Tolerated Well #2 L Axilla Sup -Time 11:10 -Correct Patient Yes -Correct Side, Site, Position Yes -Correct Procedure Yes -Procedure Performed Yes -Type of Procedure Debridement -Clinical Debridement Subcutaneous -Post Debridement Size (cm) - Length 1.8 -Post Debridement Size (cm) - Width 3.6 -Post Debridement Size (cm) - Depth 0.7 -Total Square Cm 6.48 -Wound/Ulcer Outcome Not Healed -Ulcer Cleansing Rinsed/ Irrigated with Saline -Foul Odor after Cleansing No -Bioengineered Tissue No -Bleeding Controlled with Pressure -Treatment Response Procedure Tolerated Well Pain Scale: 0-10 Numeric Is Patient Pain Free? Yes Wound debrided: #2 Left axilla, superior. Laterality: Left Wound Grade/Stage: 2. Type of Debridement: Excisional debridement Anesthesia Used: 4% Lidocaine Solution Depth: Down to and including healthy tissue, in the subcutaneous layer Percentage of wound debrided: 100 Instrument Used: 5mm curette Tissue Removed: subcutaneous tissue. Severity: Fat Layer Exposed Amount of bleeding with debridement: Mild Bleeding Controlled with: Pressure Patient tolerated procedure well - Additional Wound Wound debrided: #3 Left axilla, inferior. Laterality: Left Wound Grade/Stage: 2. Type of Debridement: Excisional debridement Anesthesia Used: 4% Lidocaine Solution Depth: Down to and including healthy tissue Percentage of wound debrided: 100 Instrument Used: 5mm curette Tissue Removed: subcutaneous tissue. Severity: Fat Layer Exposed Amount of bleeding with debridement: Mild Bleeding Controlled with: Pressure Patient tolerated procedure: Patient tolerated procedure well Assessment/Plan Assessment: 1. Open surgical hidradenitis wound left inguinal area. 2. Left inguinal hidradenitis. 3. Smoker. 4. s/p surgical preparation left inguinal area with excision hidradenitis (147 cm2). Plan: Continue VAC. She has finished her Doxycycline from the surgery. The operative culture was negative. Prealbumin from 01/18/17 was 23.5. She takes nutritional supplementation with protein to help the healing process. Renewed her Percocet for pain (50 tabs). Renewed her Valium for spasm (30 tabs). Renewed her Colace for constipation (60 tabs). Encouraged the patient to stop smoking as it may have deleterious effects on wound healing. Followup 3 weeks.
[2017-06-03 09:44] VITALS: BP 130/83; PULSE 92; RESP 16; TEMP 37.5; BMI 75.3
--- NOTE | 2017-06-03 18:21 | PCM.WC.PN ---
Type of Wound Date of Service: 06/03/17 Chief Complaint: Open surgical hidradenitis wound left inguinal area. History of Wound: Surgery 01/17/17 - Surgical preparation left inguinal area with excision hidradenitis (147 cm2). Wound care - VAC. Operative culture - negative. She was treated with Doxycycline perioperatively. Prealbumin from 01/18/17 was 23.5. She takes nutritional supplementation with protein to help the healing process. Today she denies fever. Her appetite is good. - Physical Exam Vital Signs Temp Pulse Resp BP 99.5 F H 92 16 130/83 H 06/03/17 09:44 06/03/17 09:44 06/03/17 09:44 06/03/17 09:44 Wound Measurements and Assessment WC - Nurse 1 - General Ulcer Measurement Start: 05/20/17 10:24 Freq: Status: Active Protocol: Activity Type Activity Date Activity User E-Sign Co-Sign Detail Recorded Client Recorded Date Recorded By Document 06/03/17 09:44 [facility] [id number] 06/03/17 10:01 [facility] 06/03/17 09:44 Wound Center Nurse 1 [Ulcer Assessment] #3 L Axilla Inf -Combined with other wound No -Current Size (cm) - Length 0.1 -Current Size (cm) - Width 3.3 -Current Size (cm) - Depth 0.1 -Total Square Cm 0.33 -Photo Taken No -Epithelialization Medium 34-66% -Tunneling No -Undermining/Tunneling No -Exudate Amt Small (1-33%) -Exudate Type Serous -Wound Margin Distinct, Outline Attached -Granulation Amt Large (67-100%) -Granulation Quality Red -Slough/Fibrin No -Necrosis Amt None Present (0 %) -Structure Exposed None/Limited to Skin Breakdown -Texture (Lashell-wound Skin Appearance) Scarring -Moisture (Lashell-wound Skin Appearance Maceration ) -Color (Lashell-wound Skin Appearance) Assessed -Temperature (Lashell-wound Skin No Abnormality Appearance) (Pt Warm) -Tenderness on Palpation (Lashell-wound No Skin Appearance) -Ulcer Cleansing Wound Cleanser -Foul Odor after Cleansing No -Anesthetic Used 4% Lidocaine Solution #2 L Axilla Sup -Combined with other wound No -Current Size (cm) - Length 0.7 -Current Size (cm) - Width 1.7 -Current Size (cm) - Depth 0.1 -Total Square Cm 1.19 -Photo Taken No -Epithelialization Medium 34-66% -Tunneling No -Undermining/Tunneling No -Exudate Amt Small (1-33%) -Exudate Type Serous -Wound Margin Distinct, Outline Attached -Granulation Amt Large (67-100%) -Granulation Quality Red -Slough/Fibrin No -Necrosis Amt None Present (0 %) -Structure Exposed None/Limited to Skin Breakdown -Texture (Lashell-wound Skin Appearance) Scarring -Moisture (Lashell-wound Skin Appearance Maceration ) -Color (Lashell-wound Skin Appearance) Assessed -Temperature (Lashell-wound Skin No Abnormality Appearance) (Pt Warm) -Tenderness on Palpation (Lashell-wound No Skin Appearance) -Foul Odor after Cleansing No -Anesthetic Used 4% Lidocaine Solution WC - Nurse 2 - General Ulcer CM Notes Start: 05/20/17 10:24 Freq: Status: Active Protocol: Activity Type Activity Date Activity User E-Sign Co-Sign Detail Recorded Client Recorded Date Recorded By Document 06/03/17 10:21 [id number] 06/03/17 10:22 06/03/17 10:21 Wound Center Nurse 2 [Procedure/Treatment] #3 L Axilla Inf -Time 10:21 -Correct Patient Yes -Correct Side, Site, Position Yes -Correct Procedure Yes -Procedure Performed Yes -Type of Procedure Debridement -Clinical Debridement Subcutaneous -Post Debridement Size (cm) - Length 0.2 -Post Debridement Size (cm) - Width 3.3 -Post Debridement Size (cm) - Depth 0.1 -Total Square Cm 0.66 -Wound/Ulcer Outcome Not Healed -Ulcer Cleansing Rinsed/ Irrigated with Saline -Foul Odor after Cleansing No -Bioengineered Tissue No -Bleeding Controlled with Pressure -Treatment Response Procedure Tolerated Well #2 L Axilla Sup -Time 10:22 -Correct Patient Yes -Correct Side, Site, Position Yes -Correct Procedure Yes -Procedure Performed Yes -Type of Procedure Debridement -Clinical Debridement Subcutaneous -Post Debridement Size (cm) - Length 0.8 -Post Debridement Size (cm) - Width 1.8 -Post Debridement Size (cm) - Depth 0.1 -Total Square Cm 1.44 -Wound/Ulcer Outcome Not Healed -Ulcer Cleansing Rinsed/ Irrigated with Saline -Foul Odor after Cleansing No -Bioengineered Tissue No -Bleeding Controlled with Pressure -Treatment Response Procedure Tolerated Well [See Physician Procedure note for Specifics] Pain Scale: 0-10 Numeric [Pain] -Is Patient Pain Free? Yes Debridement Note Post-Debridement Measurements/Treatment WC - Nurse 2 - General Ulcer CM Notes Start: 05/20/17 10:24 Freq: Status: Active Protocol: Activity Type Activity Date Activity User E-Sign Co-Sign Detail Recorded Client Recorded Date Recorded By Document 05/20/17 11:10 [id number] 05/20/17 11:11 Document 06/03/17 10:21 [id number] 06/03/17 10:22 05/20/17 06/03/17 11:10 10:21 Wound Center Nurse 2 #3 L Axilla Inf -Time 11:10 10:21 -Correct Patient Yes Yes -Correct Side, Site, Position Yes Yes -Correct Procedure Yes Yes -Procedure Performed Yes Yes -Type of Procedure Debridement Debridement -Clinical Debridement Subcutaneous Subcutaneous -Post Debridement Size (cm) - Length 1.2 0.2 -Post Debridement Size (cm) - Width 6.5 3.3 -Post Debridement Size (cm) - Depth 0.2 0.1 -Total Square Cm 7.80 0.66 -Wound/Ulcer Outcome Not Healed Not Healed -Ulcer Cleansing Rinsed/ Rinsed/ Irrigated with Irrigated with Saline Saline -Foul Odor after Cleansing No No -Bioengineered Tissue No No -Bleeding Controlled with Pressure Pressure -Treatment Response Procedure Procedure Tolerated Well Tolerated Well #2 L Axilla Sup -Time 11:10 10:22 -Correct Patient Yes Yes -Correct Side, Site, Position Yes Yes -Correct Procedure Yes Yes -Procedure Performed Yes Yes -Type of Procedure Debridement Debridement -Clinical Debridement Subcutaneous Subcutaneous -Post Debridement Size (cm) - Length 1.8 0.8 -Post Debridement Size (cm) - Width 3.6 1.8 -Post Debridement Size (cm) - Depth 0.7 0.1 -Total Square Cm 6.48 1.44 -Wound/Ulcer Outcome Not Healed Not Healed -Ulcer Cleansing Rinsed/ Rinsed/ Irrigated with Irrigated with Saline Saline -Foul Odor after Cleansing No No -Bioengineered Tissue No No -Bleeding Controlled with Pressure Pressure -Treatment Response Procedure Procedure Tolerated Well Tolerated Well Pain Scale: 0-10 Numeric Is Patient Pain Free? Yes Yes Wound debrided: #2 Left axilla, superior. Laterality: Left Wound Grade/Stage: 2. Type of Debridement: Excisional debridement Anesthesia Used: 4% Lidocaine Solution Depth: Down to and including healthy tissue, in the subcutaneous layer Percentage of wound debrided: 100 Instrument Used: 5mm curette Tissue Removed: subcutaneous tissue. Severity: Fat Layer Exposed Amount of bleeding with debridement: Mild Bleeding Controlled with: Pressure Patient tolerated procedure well - Additional Wound Wound debrided: #3 Left axilla, inferior. Laterality: Left Wound Grade/Stage: 2. Type of Debridement: Excisional debridement Anesthesia Used: 4% Lidocaine Solution Depth: Down to and including healthy tissue, in the subcutaneous layer Percentage of wound debrided: 100 Instrument Used: 5mm curette Tissue Removed: subcutaneous tissue. Severity: Fat Layer Exposed Amount of bleeding with debridement: Mild Bleeding Controlled with: Pressure Patient tolerated procedure: Patient tolerated procedure well Assessment/Plan Assessment: 1. Open surgical hidradenitis wound left inguinal area. 2. Left inguinal hidradenitis. 3. Smoker. 4. s/p surgical preparation left inguinal area with excision hidradenitis (147 cm2). Plan: Continue VAC. She has finished her Doxycycline from the surgery. The operative culture was negative. Prealbumin from 01/18/17 was 23.5. She takes nutritional supplementation with protein to help the healing process. Renewed her Percocet for pain (50 tabs). Renewed her Valium for spasm (30 tabs). Renewed her Colace for constipation (60 tabs). Encouraged the patient to stop smoking as it may have deleterious effects on wound healing. Followup 3 weeks.
--- NOTE | 2017-06-05 00:02 | PN.PCM_ITS ---
Type of Wound Date of Service: 06/03/17 Chief Complaint: Open surgical hidradenitis wound left inguinal area. History of Wound: Surgery 01/17/17 - Surgical preparation left inguinal area with excision hidradenitis (147 cm2). Wound care - VAC. Operative culture - negative. She was treated with Doxycycline perioperatively. Prealbumin from was 23.5. She takes nutritional supplementation with protein to help the healing process. Today she denies fever. Her appetite is good. - Physical Exam Vital Signs Temp Pulse Resp BP 99.5 F H 92 16 130/83 H 06/03/17 09:44 06/03/17 09:44 06/03/17 09:44 06/03/17 09:44 Wound Measurements and Assessment WC - Nurse 1 - General Ulcer Measurement Start: 05/20/17 10:24 Freq: Status: Active Protocol: Activity Type Activity Date Activity User E-Sign Co-Sign Detail Recorded Client Recorded Date Recorded By Document 06/03/17 09:44 [facility] [id number] 06/03/17 10:01 [facility] 06/03/17 09:44 Wound Center Nurse 1 [Ulcer Assessment] #3 L Axilla Inf -Combined with other wound No -Current Size (cm) - Length 0.1 -Current Size (cm) - Width 3.3 -Current Size (cm) - Depth 0.1 -Total Square Cm 0.33 -Photo Taken No -Epithelialization Medium 34-66% -Tunneling No -Undermining/Tunneling No -Exudate Amt Small (1-33%) -Exudate Type Serous -Wound Margin Distinct, Outline Attached -Granulation Amt Large (67-100%) -Granulation Quality Red -Slough/Fibrin No -Necrosis Amt None Present (0 %) -Structure Exposed None/Limited to Skin Breakdown -Texture (Lashell-wound Skin Appearance) Scarring -Moisture (Lashell-wound Skin Appearance Maceration ) -Color (Lashell-wound Skin Appearance) Assessed -Temperature (Lashell-wound Skin No Abnormality Appearance) (Pt Warm) -Tenderness on Palpation (Lashell-wound No Skin Appearance) -Ulcer Cleansing Wound Cleanser -Foul Odor after Cleansing No -Anesthetic Used 4% Lidocaine Solution #2 L Axilla Sup -Combined with other wound No -Current Size (cm) - Length 0.7 -Current Size (cm) - Width 1.7 -Current Size (cm) - Depth 0.1 -Total Square Cm 1.19 -Photo Taken No -Epithelialization Medium 34-66% -Tunneling No -Undermining/Tunneling No -Exudate Amt Small (1-33%) -Exudate Type Serous -Wound Margin Distinct, Outline Attached -Granulation Amt Large (67-100%) -Granulation Quality Red -Slough/Fibrin No -Necrosis Amt None Present (0 %) -Structure Exposed None/Limited to Skin Breakdown -Texture (Lashell-wound Skin Appearance) Scarring -Moisture (Lashell-wound Skin Appearance Maceration ) -Color (Lashell-wound Skin Appearance) Assessed -Temperature (Lashell-wound Skin No Abnormality Appearance) (Pt Warm) -Tenderness on Palpation (Lashell-wound No Skin Appearance) -Foul Odor after Cleansing No -Anesthetic Used 4% Lidocaine Solution WC - Nurse 2 - General Ulcer CM Notes Start: 05/20/17 10:24 Freq: Status: Active Protocol: Activity Type Activity Date Activity User E-Sign Co-Sign Detail Recorded Client Recorded Date Recorded By Document 06/03/17 10:21 [id number] 06/03/17 10:22 06/03/17 10:21 Wound Center Nurse 2 [Procedure/Treatment] #3 L Axilla Inf -Time 10:21 -Correct Patient Yes -Correct Side, Site, Position Yes -Correct Procedure Yes -Procedure Performed Yes -Type of Procedure Debridement -Clinical Debridement Subcutaneous -Post Debridement Size (cm) - Length 0.2 -Post Debridement Size (cm) - Width 3.3 -Post Debridement Size (cm) - Depth 0.1 -Total Square Cm 0.66 -Wound/Ulcer Outcome Not Healed -Ulcer Cleansing Rinsed/ Irrigated with Saline -Foul Odor after Cleansing No -Bioengineered Tissue No -Bleeding Controlled with Pressure -Treatment Response Procedure Tolerated Well #2 L Axilla Sup -Time 10:22 -Correct Patient Yes -Correct Side, Site, Position Yes -Correct Procedure Yes -Procedure Performed Yes -Type of Procedure Debridement -Clinical Debridement Subcutaneous -Post Debridement Size (cm) - Length 0.8 -Post Debridement Size (cm) - Width 1.8 -Post Debridement Size (cm) - Depth 0.1 -Total Square Cm 1.44 -Wound/Ulcer Outcome Not Healed -Ulcer Cleansing Rinsed/ Irrigated with Saline -Foul Odor after Cleansing No -Bioengineered Tissue No -Bleeding Controlled with Pressure -Treatment Response Procedure Tolerated Well [See Physician Procedure note for Specifics] Pain Scale: 0-10 Numeric [Pain] -Is Patient Pain Free? Yes Debridement Note Post-Debridement Measurements/Treatment WC - Nurse 2 - General Ulcer CM Notes Start: 05/20/17 10:24 Freq: Status: Active Protocol: Activity Type Activity Date Activity User E-Sign Co-Sign Detail Recorded Client Recorded Date Recorded By Document 05/20/17 11:10 [id number] 05/20/17 11:11 Document 06/03/17 10:21 [id number] 06/03/17 10:22 05/20/17 06/03/17 11:10 10:21 Wound Center Nurse 2 #3 L Axilla Inf -Time 11:10 10:21 -Correct Patient Yes Yes -Correct Side, Site, Position Yes Yes -Correct Procedure Yes Yes -Procedure Performed Yes Yes -Type of Procedure Debridement Debridement -Clinical Debridement Subcutaneous Subcutaneous -Post Debridement Size (cm) - Length 1.2 0.2 -Post Debridement Size (cm) - Width 6.5 3.3 -Post Debridement Size (cm) - Depth 0.2 0.1 -Total Square Cm 7.80 0.66 -Wound/Ulcer Outcome Not Healed Not Healed -Ulcer Cleansing Rinsed/ Rinsed/ Irrigated with Irrigated with Saline Saline -Foul Odor after Cleansing No No -Bioengineered Tissue No No -Bleeding Controlled with Pressure Pressure -Treatment Response Procedure Procedure Tolerated Well Tolerated Well #2 L Axilla Sup -Time 11:10 10:22 -Correct Patient Yes Yes -Correct Side, Site, Position Yes Yes -Correct Procedure Yes Yes -Procedure Performed Yes Yes -Type of Procedure Debridement Debridement -Clinical Debridement Subcutaneous Subcutaneous -Post Debridement Size (cm) - Length 1.8 0.8 -Post Debridement Size (cm) - Width 3.6 1.8 -Post Debridement Size (cm) - Depth 0.7 0.1 -Total Square Cm 6.48 1.44 -Wound/Ulcer Outcome Not Healed Not Healed -Ulcer Cleansing Rinsed/ Rinsed/ Irrigated with Irrigated with Saline Saline -Foul Odor after Cleansing No No -Bioengineered Tissue No No -Bleeding Controlled with Pressure Pressure -Treatment Response Procedure Procedure Tolerated Well Tolerated Well Pain Scale: 0-10 Numeric Is Patient Pain Free? Yes Yes Wound debrided: #2 Left axilla, superior. Laterality: Left Wound Grade/Stage: 2. Type of Debridement: Excisional debridement Anesthesia Used: 4% Lidocaine Solution Depth: Down to and including healthy tissue, in the subcutaneous layer Percentage of wound debrided: 100 Instrument Used: 5mm curette Tissue Removed: subcutaneous tissue. Severity: Fat Layer Exposed Amount of bleeding with debridement: Mild Bleeding Controlled with: Pressure Patient tolerated procedure well - Additional Wound Wound debrided: #3 Left axilla, inferior. Laterality: Left Wound Grade/Stage: 2. Type of Debridement: Excisional debridement Anesthesia Used: 4% Lidocaine Solution Depth: Down to and including healthy tissue, in the subcutaneous layer Percentage of wound debrided: 100 Instrument Used: 5mm curette Tissue Removed: subcutaneous tissue. Severity: Fat Layer Exposed Amount of bleeding with debridement: Mild Bleeding Controlled with: Pressure Patient tolerated procedure: Patient tolerated procedure well Assessment/Plan Assessment: 1. Open surgical hidradenitis wound left inguinal area. 2. Left inguinal hidradenitis. 3. Smoker. 4. s/p surgical preparation left inguinal area with excision hidradenitis (147 cm2). Plan: Continue VAC. She has finished her Doxycycline from the surgery. The operative culture was negative. Prealbumin from 01/18/17 was 23.5. She takes nutritional supplementation with protein to help the healing process. Renewed her Percocet for pain (50 tabs). Renewed her Valium for spasm (30 tabs). Renewed her Colace for constipation (60 tabs). Encouraged the patient to stop smoking as it may have deleterious effects on wound healing. Followup 3 weeks.
== END 2017-06-05 23:59 ==
LOC: WC 09:30
PROVIDERS: Family Provider Family Medicine; PCP Family Medicine; Visit Provider Surgery
DX: L73.2 Hidradenitis suppurativa (principal); F17.200 Nicotine dependence, unspecified, uncomplicated; R25.2 Cramp and spasm; K59.00 Constipation, unspecified
CPT/HCPCS: 11042; 11045; 97605; 99213; G0463

== ENCOUNTER 2017-06-24 08:18 | Outpatient (RCR) | payer MEDICAID, SELFPAY ==
[2017-06-06 01:08] VITALS: PULSE 92; RESP 16; TEMP 37.5
[2017-06-24 10:35] VITALS: BP 138/89; PULSE 93; RESP 16; TEMP 37.4
--- NOTE | 2017-06-24 18:37 | PCM.WC.PN ---
Type of Wound Date of Service: 06/24/17 Chief Complaint: Open surgical hidradenitis wound left inguinal area. History of Wound: Surgery 01/17/17 - Surgical preparation left inguinal area with excision hidradenitis (147 cm2). Wound care - VAC. Operative culture - negative. She was treated with Doxycycline perioperatively. Prealbumin from 01/18/17 was 23.5. She takes nutritional supplementation with protein to help the healing process. Today she denies fever. Her appetite is good. - Physical Exam Vital Signs Temp Pulse Resp BP 99.3 F H 93 16 138/89 H 06/24/17 10:35 06/24/17 10:35 06/24/17 10:35 06/24/17 10:35 Wound Measurements and Assessment - Nurse 1 - General Ulcer Measurement Start: 06/24/17 10:35 Freq: Status: Active Protocol: Activity Type Activity Date Activity User E-Sign Co-Sign Detail Recorded Client Recorded Date Recorded By Document 06/24/17 10:35 [facility] [id number] 06/24/17 10:42 [facility] 06/24/17 10:35 Wound Center Nurse 1 [Ulcer Assessment] #3 L Axilla Inf -Combined with other wound No -Current Size (cm) - Length 0 -Current Size (cm) - Width 0 -Current Size (cm) - Depth 0 -Total Square Cm 0 -Date of Last Picture (Recall this 06/24/17 field) -Photo Taken Yes -Epithelialization Large 67-100% -Exudate Amt None Present (0 %) #2 L Axilla Sup -Combined with other wound No -Current Size (cm) - Length 0 -Current Size (cm) - Width 0 -Current Size (cm) - Depth 0 -Total Square Cm 0 -Date of Last Picture (Recall this 06/24/17 field) -Photo Taken Yes -Epithelialization Large 67-100% - Nurse 2 - General Ulcer CM Notes Start: 06/24/17 10:35 Freq: Status: Active Protocol: Activity Type Activity Date Activity User E-Sign Co-Sign Detail Recorded Client Recorded Date Recorded By Document 06/24/17 11:16 [id number] 06/24/17 11:18 06/24/17 11:16 Wound Center Nurse 2 [Procedure/Treatment] #3 L Axilla Inf -Correct Patient No -Correct Side, Site, Position No -Correct Procedure No -Procedure Performed No -Post Debridement Size (cm) - Length 0 -Post Debridement Size (cm) - Width 0 -Post Debridement Size (cm) - Depth 0 -Total Square Cm 0 -Wound/Ulcer Outcome Healed- Epithelialized #2 L Axilla Sup -Correct Patient No -Correct Side, Site, Position No -Correct Procedure No -Procedure Performed No -Post Debridement Size (cm) - Length 0 -Post Debridement Size (cm) - Width 0 -Post Debridement Size (cm) - Depth 0 -Total Square Cm 0 -Wound/Ulcer Outcome Healed- Epithelialized [See Physician Procedure note for Specifics] Pain Scale: 0-10 Numeric [Pain] -Is Patient Pain Free? Yes Debridement Note Post-Debridement Measurements/Treatment WC - Nurse 2 - General Ulcer CM Notes Start: 06/24/17 10:35 Freq: Status: Active Protocol: Activity Type Activity Date Activity User E-Sign Co-Sign Detail Recorded Client Recorded Date Recorded By Document 06/24/17 11:16 [id number] 06/24/17 11:18 06/24/17 11:16 Wound Center Nurse 2 #3 L Axilla Inf -Correct Patient No -Correct Side, Site, Position No -Correct Procedure No -Procedure Performed No -Post Debridement Size (cm) - Length 0 -Post Debridement Size (cm) - Width 0 -Post Debridement Size (cm) - Depth 0 -Total Square Cm 0 -Wound/Ulcer Outcome Healed- Epithelialized #2 L Axilla Sup -Correct Patient No -Correct Side, Site, Position No -Correct Procedure No -Procedure Performed No -Post Debridement Size (cm) - Length 0 -Post Debridement Size (cm) - Width 0 -Post Debridement Size (cm) - Depth 0 -Total Square Cm 0 -Wound/Ulcer Outcome Healed- Epithelialized Pain Scale: 0-10 Numeric Is Patient Pain Free? Yes Wound debrided: #2 Left axilla, superior. Laterality: Left Wound Grade/Stage: 2. No debridement was completed today - the ulcer has healed. - Additional Wound Wound debrided: #3 Left axilla, inferior. Laterality: Left Wound Grade/Stage: 2. Patient tolerated procedure: - - No debridement was done today as the ulcer has healed. Assessment/Plan Assessment: 1. Open surgical hidradenitis wound left inguinal area. 2. Left inguinal hidradenitis. 3. Smoker. 4. s/p surgical preparation left inguinal area with excision hidradenitis (147 cm2). Plan: Continue VAC. She has finished her Doxycycline from the surgery. The operative culture was negative. Prealbumin from 01/18/17 was 23.5. She takes nutritional supplementation with protein to help the healing process. Renewed her Percocet for pain (50 tabs). Renewed her Valium for spasm (30 tabs). Renewed her Colace for constipation (60 tabs). Encouraged the patient to stop smoking as it may have deleterious effects on wound healing. Followup 3 weeks.
== END 2017-07-06 23:59 ==
LOC: WC 08:18
PROVIDERS: Family Provider Family Medicine; PCP Family Medicine; Visit Provider Surgery
DX: L73.2 Hidradenitis suppurativa (principal); F17.200 Nicotine dependence, unspecified, uncomplicated
CPT/HCPCS: 99212; G0463

== ENCOUNTER 2017-07-05 11:38 | Observation (INO) | payer MEDICAID, SELFPAY ==
--- NOTE | 2017-07-03 22:01 | PCM.HP.BLA ---
History and Physical Date of Admission: 07/04/17 HISTORY OF PRESENT ILLNESS 37 year old woman presents with recent flareup of hidradenitis involving her right inguinal and medial thigh area and right vulval area from the mons pubis to the genitocrural area. She had recent surgery in the left inguinal area on 01/17/17 where she underwent surgical preparation left inguinal area with excision hidradenitis (147 cm2) and in the left axillary area on 04/30/17 where she underwent surgical preparation left axilla with excision hidradenitis (53.5 cm2). The resultant wounds have healed with antibiotics and wound care with the VAC and Silver dressing changes. She now states her right inguinal hidradenitis and right vulval hidradenitis have developed some recent flareups and are bothering her at this time and she presents today for excision in these areas. PAST MEDICAL HISTORY Anemia Back Problems Bladder/Urinary Tract Inf Diabetes, gestational Emotional Problems Headaches/Migraines Hives Hidradenitis Pneumonia PAST SURGICAL HISTORY 10-12-2014 surgical preparation left inguinal area with excision hidradenitis (147 cm2) - 01/17/17 surgical preparation left axilla with excision hidradenitis (53.5 cm2) - 04/30/17 MEDICATIONS Ibuprofen. MVI. ALLERGIES Adhesive Tape. FAMILY HISTORY Mother (biol.) - Has Family History of Anemia Mother (biol.) - Has Family History of Anxiety Mother (biol.) - Has Family History of Breast Cancer Mother (biol.) - Has Family History of Hypertension Father (biol.) - Has Family History of Diabetes Father (biol.) - Has Family History of Hypertension Father (biol.) - Has Family History of Kidney/Renal Disease Father (biol.) - Has Family History of Seizures negative for skin cancer. SOCIAL HISTORY Alcohol Use - yes Drug Use - no Smoking History: Patient currently smokes every day. Regular Exercise - no REVIEW OF SYSTEMS General Denies fever, fatigue and weight loss. Eyes Denies eye pain. ENT Denies nasal congestion and sore throat. CV Denies chest pain or discomfort, fatigue, lightheadedness and shortness of breath with exertion. Resp Denies cough and shortness of breath. patient is a smoker. GI Denies nausea, vomiting, diarrhea and constipation. Denies blood in urine and urinary frequency. MS Complains of back pain. Denies joint pain, stiffness, muscle weakness and arthritis. Derm Complains of suspicious lesions. Denies skin cancer. has bilateral inguinal and vulval and axillary hidradenitis and left breast hidradenitis in the inframammary crease. Neuro Complains of headaches. Psych Complains of anxiety. Denies depression. Endo Denies excessive urination and excessive thirst. Heme Denies bleeding and abnormal bruising. PHYSICAL EXAMINATION General well developed, well nourished, in no acute distress. Head normocephalic and atraumatic. Eyes PERRL/EOM intact, conjunctiva and sclera clear. Neck no masses, thyromegaly, or abnormal cervical nodes. Breasts area of hidradenitis in the left breast inframammary crease. Some erythema. Measures 4 cm. Slightly tender to palpation. No purulent drainage. Lungs clear bilaterally to auscultation. Heart non-displaced PMI, chest non-tender; regular rate and rhythm, S1, S2 without murmurs, rubs, or gallops Abdomen normal bowel sounds; no hepatosplenomegaly no ventral,umbilical hernias or masses noted. had bilateral inguinal hidradenitis with some extension into the pubic area. On the left there is a healed scar from recent surgical excision. There is induration on the right. Tenderness to palpation. No purulent drainage. Measures 10 cm in the right inguinal area. There is extension into the right vulval area from the mons pubis to the genitocrural area. Pulses pulses normal in all 4 extremities. Extremities no clubbing, cyanosis, edema. Has bilateral axillary hidradenitis. The left axillary area has a healed scar from recent surgical excision. Induration is present on the right. Some erythema. No purulent drainage. Minimal tenderness at present. Measures 4 cm. Neurologic cranial nerves II-XII grossly intact. Skin no rashes. Cervical Nodes no significant adenopathy. Axillary Nodes no significant adenopathy. Hard to assess with the amount of tenderness and induration. Inguinal Nodes no significant adenopathy. Hard to assess with the amount of tenderness and induration. Psych alert and cooperative; normal mood and affect; normal attention span and concentration. ASSESSMENT 1. Right inguinal hidradenitis. 2. Right vulval hidradenitis from the mons pubis to the genitocrural area. 3. Left breast hidradenitis in inframammary crease. 4. Recent excision left inguinal hidradenitis. 5. Recent excision left axillary hidradenitis. 6. Smoker. PLAN Recommend excision of her right inguinal hidradenitis and right vulval hidradenitis and send it to Pathology for analysis to rule out carcinoma. Will also send tissue to Microbiology for culture. A positive culture may necessitate antibiotic modification. At surgery, will leave the wound open and proceed with wound care with the VAC or Silver dressing changes. Post discharge will followup at the Wound Center. If there is a plateau in the healing process, will proceed with delayed closure with skin grafting. Surgery will be done under general anesthesia with an overnight stay in the hospital. The patient was informed of the risks and complications of the procedure including alternatives to surgery. These were discussed with the patient personally. The patient voices understanding and wishes to proceed. Some of the risks and complications were included in a form from the [employer]. Encouraged the patient to stop smoking as it may have deleterious effects on wound healing.
[2017-07-04] VITALS (9 sets, daily range): BP systolic 110–144; BP diastolic 62–97; PULSE 77–127; RESP 16–18; TEMP 36.3–37.1; O2SAT 94–100; BMI 34.2
--- NOTE | 2017-07-04 | HID_PTH ---
PATIENT: CORINNE ADEN LOC: MS2 U#:[id number] AGE/SX: 37/F ROOM: MS211 RE07/05/[address]: Dr. Zi Benedict MD : 1980 BED: 1 DIS: 07/07/2017 SPEC #: [id number] RECD: 07/04/17 13:58 STATUS: ALEXA REAlyssa #: [id number] FREDDY: 07/04/17 00:[address]: Zi Benedict DEPT: SURGICAL PATHOLOGY RECD BY: Chucho Durán ENTERED: 07/04/17 13:58 SP TYPE: Hidradenit OTHR DR: Dr. Edwin Collins MD Tissues: Inguinal region, NOS Procedures: Surgery Specimen Level III HEADER OPERATION: Excision, hidradenitis, inguinal and vulval areas with partial vulvectomy PRE-OP DIAGNOSIS: Right inguinal hidradenitis TISSUE SUBMITTED: Right inguinal, medial thigh and vulva area MICROSCOPIC DIAGNOSIS Right inguinal, medial thigh and vulva area, excision hidradenitis: Skin with underlying adipose tissue with mild dermal chronic inflammation. TYLER:joseph 07/05/17 MICROSCOPIC DESCRIPTION Slides are reviewed. GROSS DESCRIPTION Received in fixative is one container labeled with the patient's name and designated right inguinal, medial thigh, vulva area. The specimen consists of an irregular fragment of pink-babcock skin with attached yellow fatty tissue measuring 14.5 x 9 cm and a depth of excision measuring 2 cm. No mass lesions are identified on serial sectioning. Acct Exec sections are submitted in 4 cassettes. KERVIN/joseph 07/04/17 TC: 3 CPT: 66520
[2017-07-04 08:22] LABS: Internal QC Validated? YES +Cl - CLEAR BKGD; Pregnancy, Urine Negative Negative
[2017-07-04] MEDS: Cefazolin 2 GM in 0.9% Normal Saline 100 ML IV (10:45)
--- NOTE | 2017-07-04 11:37 | OP.PN_ITS ---
Immediate Post-Op Note Date of Procedure: 07/04/17 Primary Surgeon/Physician: Zi Benedict cryogenic transport driver: None Pre-Operative Diagnosis: 1. Right inguinal hidradenitis. 2. Right vulval hidradenitis from the mons pubis to the genitocrural area. 3. Left breast hidradenitis in inframammary crease. 4. Recent excision left inguinal hidradenitis. 5. Recent excision left axillary hidradenitis. 6. Smoker. Post-Operative Diagnosis: Same. Surgery/Procedure Performed:: 1. Surgical preparation right inguinal and medial thigh area with excision hidradenitis (136 cm2). 2. Excision hidradenitis right vulval area with partial vulvectomy into deep subcutaneous tissue (from the mons pubis to the genitocrural area). Description of Surgical Findings:: 37 year old woman presents with recent flareup of hidradenitis involving her right inguinal and medial thigh area and right vulval area from the mons pubis to the genitocrural area. She had recent surgery in the left inguinal area on 01/17/17 where she underwent surgical preparation left inguinal area with excision hidradenitis (147 cm2) and in the left axillary area on 04/30/17 where she underwent surgical preparation left axilla with excision hidradenitis (53.5 cm2). The resultant wounds have healed with antibiotics and wound care with the VAC and Silver dressing changes. She now states her right inguinal hidradenitis and right vulval hidradenitis have developed some recent flareups and are bothering her at this time and she presents today for excision in these areas. Today the patient underwent surgical preparation right inguinal and medial thigh area with excision hidradenitis (136 cm2) and excision hidradenitis right vulval area with partial vulvectomy into deep subcutaneous tissue (from the mons pubis to the genitocrural area). Size of defect right inguinal area, medial thigh area, and vulval area - 17 x 8 x 2 cm. Estimated Blood Loss: 50 ml. Specimen's removed: Right inguinal, medial thigh, and vulval hidradenitis to Pathology and Microbiology. Drains: None. Type of Anesthesia:: General - Admit VTE Documentation VTE Present on Admission: No VTE Mechan Device Prophylaxis: SCD's VTE Pharm Prophylaxis ordered?: No
[2017-07-04] MEDS: Lactated Ringers 1,000 ML 60 ML IV (14:56)
[2017-07-04] MEDS: oxyCODONE 5 MG Tablet 10 MG PO ×2 (14:56→20:24)
[2017-07-04] MEDS: HYDROmorphone 1 MG/ML Syringe IV ×2 (17:17→23:02)
[2017-07-04] MEDS: Cefazolin 1 GM/50 ML BAG IV (18:52)
[2017-07-04] MEDS: Docusate Sodium 100 MG Capsule PO (20:25)
[2017-07-04] MEDS: 0.9% NaCl Peripheral Flush Adult/Peds IV (23:02)
[2017-07-05] MEDS: oxyCODONE 5 MG Tablet 10 MG PO ×5 (03:26→20:57)
[2017-07-05] MEDS: Cefazolin 1 GM/50 ML BAG IV ×3 (03:26→18:17)
[2017-07-05 03:33] VITALS: BP 131/76; PULSE 72; RESP 18; TEMP 36.6; O2SAT 100
[2017-07-05 06:01] LABS: Hematocrit 37.3 % (37-47); Hemoglobin 12.5 g/dl (12.0-15.0); Mean Corp Hgb Conc 33.5 g/gl (32-36); Mean Corpuscular Hgb 31.1 pg (27.0-32.0); Mean Corpuscular Volume 92.8 fL (81-99); Platelet Count 292 K/mm3 (150-450); RBC Distribution Width CV 12.7 % (11.6-14.6); RBC Distribution Width SD 42.6 fl (35.1-43.9); Red Blood Count 4.02 M/mm3 (4.2-5.4); White Blood Count 9.2 K/mm3 (4.4-11.0)
[2017-07-05] MEDS: HYDROmorphone 1 MG/ML Syringe IV ×5 (06:06→22:57)
[2017-07-05] MEDS: 0.9% NaCl Peripheral Flush Adult/Peds IV (06:06)
[2017-07-05 06:11] LABS: Scan Indicated on CBC? Y/N NO
[2017-07-05 06:23] LABS: Anion Gap 5 (5-15); BUN 13 mg/dL (7-18); BUN/Creat Ratio 19.4 RATIO (10-20); Chloride 105 mmol/L (98-107); Creatinine, Serum 0.67 mg/dL (0.55-1.02); EST Glomerular Filtration Rate 105 mL/min (>60); Est Glom Filt Rate - Afr Amer 127 mL/min (>60); Estimated Creatinine Clearance 81.78 ml/min; Glucose 113 mg/dL (74-106); Potassium 4.1 mmol/L (3.5-5.1); Prealbumin 25.6 mg/dL (20.0-40.0); Sodium Level 137 mmol/L (136-145)
[2017-07-05] MEDS: Multivitamins,Therapeutic Tablet 1 TABLET PO (08:08)
[2017-07-05] MEDS: Docusate Sodium 100 MG Capsule PO ×2 (08:09→22:57)
[2017-07-05] MEDS: Lactated Ringers 1,000 ML 60 ML IV (08:14)
[2017-07-05 08:18] VITALS: BP 111/78; PULSE 93; RESP 18; TEMP 36.7; O2SAT 98
[2017-07-05] MEDS: diazePAM 5 MG Tablet PO (09:46)
--- NOTE | 2017-07-05 10:44 | NURSING ---
wound photo: right inguinal/medial thigh
--- NOTE | 2017-07-05 11:46 | CASEMGMT ---
Addendum entered by Loly Stevens 07/05/17 11:52: Green Sheet placed on chart. Please fax DC Instructions and Summary to [facility] at [phone]. Please notify [facility] of DC at [phone]. Original Note: Patient has used [facility] for wound vac changes in the past. Bisi, from [facility], confirms that they will accept care of the patient. First wound vac change will be Saturday, July 08. Continued schedule will be //. Patient states agreeable with care through [facility] and is updated on the plan.
--- NOTE | 2017-07-05 12:48 | OP.PCM_ITS ---
Report of Operation Date of Procedure: 07/04/17 Pre-Operative Diagnosis: 1. Right inguinal hidradenitis. 2. Right vulval hidradenitis from the mons pubis to the genitocrural area. 3. Left breast hidradenitis in inframammary crease. 4. Recent excision left inguinal hidradenitis. 5. Recent excision left axillary hidradenitis. 6. Smoker. Post-Operative Diagnosis: Same. Surgery/Procedure Performed:: 1. Surgical preparation right inguinal and medial thigh area with excison hidradenitis (136 cm2). 2. Excision hidradenitis right vulval area with partial vulvectomy into deep subcutaneous tissue (from the mons pubis to the genitocrural area). Description of Surgical Findings:: 7 year old woman presents with recent flareup of hidradenitis involving her right inguinal and medial thigh area and right vulval area from the mons pubis to the genitocrural area. She had recent surgery in the left inguinal area on 01/17/17 where she underwent surgical preparation left inguinal area with excision hidradenitis (147 cm2) and in the left axillary area on 04/30/17 where she underwent surgical preparation left axilla with excision hidradenitis (53.5 cm2). The resultant wounds have healed with antibiotics and wound care with the VAC and Silver dressing changes. She now states her right inguinal hidradenitis and right vulval hidradenitis have developed some recent flareups and are bothering her at this time and she presents today for excision in these areas. The patient was informed of the risks and complications of the procedure including alternatives to surgery. These were discussed with the patient personally. The patient voices understanding and wishes to proceed. Some of the risks and complications were included in a form from the [employer]. Encouraged the patient to stop smoking as it may have deleterious effects on wound healing. Size of defect right inguinal area, medial thigh area, and vulval area - 17 x 8 x 2 cm. acidizer helper: None Type of Anesthesia:: General Specimen's removed: Right inguinal, medial thigh, and vulval hidradenitis to Pathology and Microbiology. Drains: None. Estimated Blood Loss (mL): 50 ml. Description of Procedure: Patient was taken to the OR in supine position and was placed under general anesthesia. Her legs were externally rotated. The surrounding hair was shaved. The right inguinal area and right medial thigh area and right vulval area were prepped and draped in the usual fashion. SCD's were placed for DVT prophylaxis. Perioperative antibiotics were given intravenously. The areas of hidradenitis were marked out in the right inguinal and medial thigh area with extension into the vulval area involving the mons pubis and the genitocrural area. The areas were infiltrated with xylocaine and epinephrine. After waiting 5 minutes for the anesthetic to take effect, I proceeded with excision of the right inguinal and medial thigh hidradenitis with a scalpel down through the subcutaneous tissue until the underlying muscular fascia was seen. No pus was seen. There were scattered areas of induration that had extended to the underlying fascia. A lot of fat necrosis was seen. This fat necrosis and indurated scarring is indicative of chronic infection. The mons pubis also showed some fat necrosis and indurated scarring. The right vulval hidradenitis was also excised involving some of the mons pubis and genitocrural area with a partial vulvectomy including deep subcutaneous tissue. These areas were combined into one wound. After excision, some of the tissue was sent to Microbiology for culture. A positive culture may necessitate antibiotic modification. The rest of the tissue was sent to Pathology for analysis to rule out carcinoma. The wound was irrigated with saline. Hemostasis was obtained with electrocautery. The dimensions of the wound after the excision was 17 x 8 x 2 cm. The wound was dressed with Mepitel nonadherent dressing and kerlix gauze with betadine followed by a dry kerlix gauze and ABD pads. Patient tolerated the procedure well and was sent to PACU in satisfactory condition. She will be sent upstairs for a surgical observation overnight stay. The VAC will be applied tomorrow. After discharge, she will followup at the Wound Center. Grafts/Implants Used: None. - Complications None. - Admit VTE Documentation VTE Present on Admission: No VTE Mechan Device Prophylaxis: SCD's VTE Pharm Prophylaxis ordered?: No Code Visit Surgery Charges CPT - 94553 ICD-10 - L73.2, S31.103A, S31.40xA, F17.200 09498 L73.2, S31.40xA, S31.103A, F17.200
[2017-07-05 14:07] VITALS: BP 148/85; PULSE 85; RESP 16; TEMP 36.6; O2SAT 98
--- NOTE | 2017-07-05 15:16 | CASEMGMT ---
Call placed to Bisi at [facility]. Bisi confirms that they have patient on schedule for first wound vac change on Saturday.
--- NOTE | 2017-07-05 20:08 | PCM.PN.SRG ---
Subjective: Postop #1 Patient complains of wound pain. VAC applied today. - Physical Exam General: Alert, Oriented x3 HEENT: PERRLA, EOMI Neck: Supple Lungs: Clear to auscultation Cardiovascular: Regular rate, Regular Rhythm Abdomen: Soft, Non-Distended Skin: Ulcer/ Wound - wound is stable. No bleeding seen. VAC applied with some pain. Neurological: Cranial nerves II-XII grossly intact Psych/Mental Status: Normal Affect, Appropriate Vital Signs Temp Pulse Resp BP Pulse Ox 97.8 F 85 16 148/85 H 98 07/05/17 14:07 07/05/17 14:07 07/05/17 14:07 07/05/17 14:07 07/05/17 14:07 Oxygen Delivery Method Room Air Weight: 175 lb Body Mass Index (BMI) 34.2 Intake and Output for Last 24 Hours 07/03/17 07/04/17 07/05/17 23:59 23:59 23:59 Intake Total 2176 / 2176 3731 / 3731 Output Total 2750 / 2750 Balance 2176 / 2176 981 / 981 Microbiology Past 72 Hours 07/04/17 11:40 Gram Stain - Final Tissue - Groin Wound Culture - Preliminary No growth-Final to follow Laboratory Tests Past 24 Hrs 07/05/17 07/05/17 05:45 05:45 WBC 9.2 RBC 4.02 L Hgb 12.5 Hct 37.3 MCV 92.8 MCH 31.1 MCHC 33.5 RDW 12.7 RDW Differential 42.6 Plt Count 292 MPV 9.0 Sodium 137 Potassium 4.1 Chloride 105 Carbon Dioxide 27.0 Anion Gap 5 BUN 13 Creatinine 0.67 Estim Creat Clear Calc 81.78 Est GFR (MDRD) Af Amer 127 Est GFR (MDRD) Non-Af 105 BUN/Creatinine Ratio 19.4 Glucose 113 H Calcium 8.0 L Prealbumin 25.6 Medical Necessity - Tobacco Use Smoking Status: Current every day smoker Assessment/Plan 1. Right inguinal hidradenitis. 2. Right vulval hidradenitis from the mons pubis to the genitocrural area. 3 3. Smoker. 4. s/p surgical preparation right inguinal and medial thigh area with excision hidradenitis (136 cm2) and excision hidradenitis right vulval area with partial vulvectomy into deep subcutaneous tissue (from the mons pubis to the genitocrural area). VAC applied today. To be changed three times per week at 150 mmHg continuous suction. Patient has a lot of pain from the VAC. She needed IV analgesia. Will wean to po analgesia in preparation for discharge. Anticipate discharge tomorrow. Operative culture negative thus far. Continue IV antibiotics. Will discharge on Doxycycline until the cultures are available. A positive culture may necessitate antibiotic modification. Prealbumin was 25.6. Encourage nutritional supplementation with protein to help the healing process. After discharge, followup at the Wound Center. If there is a plateau in the healing process, can proceed with delayed closure with skin grafting. Encouraged patient to stop smoking as it may have deleterious effects on wound healing.
[2017-07-05 20:18] VITALS: BP 122/84; PULSE 91; RESP 18; TEMP 36.4; O2SAT 99
[2017-07-06] MEDS: Lactated Ringers 1,000 ML 60 ML IV ×2 (01:47→17:55)
[2017-07-06] MEDS: oxyCODONE 5 MG Tablet 10 MG PO ×5 (01:47→22:43)
[2017-07-06] MEDS: Cefazolin 1 GM/50 ML BAG IV ×3 (02:01→19:05)
[2017-07-06 02:03] VITALS: BP 112/69; PULSE 88; RESP 18; TEMP 37.2; O2SAT 100
[2017-07-06] MEDS: HYDROmorphone 1 MG/ML Syringe IV ×5 (03:36→20:36)
[2017-07-06] MEDS: 0.9% NaCl Peripheral Flush Adult/Peds IV ×3 (08:04→20:21)
[2017-07-06 08:09] VITALS: BP 149/103; BP 149/95; PULSE 113; RESP 20; TEMP 37.2; O2SAT 99
--- NOTE | 2017-07-06 08:10 | NURSING ---
Prachi VPK TEACHER notified this RN that patient would like to speak to relief charge nurse regarding pain medication. in to see patient with primary RN, Candace, at bedside administering pain medication via IV. pt states she was upset over night time babysitter RN stating it was not time for her pain medication--attempting to wean her to oral pain medications. explained to patient, pt states she has been through this 3 times and knows how this works. IV pain medication given-see MAR. pt denies other concerns at this time. will monitor.
[2017-07-06] MEDS: Multivitamins,Therapeutic Tablet 1 TABLET PO (08:13)
[2017-07-06 10:45] VITALS: PULSE 112
[2017-07-06] MEDS: Docusate Sodium 100 MG Capsule PO ×2 (10:45→20:44)
--- NOTE | 2017-07-06 12:25 | PN.SURG_ITS ---
Subjective: Postop #2 Patient having increased wound pain and muscle spasm. - Physical Exam General: Alert, Oriented x3 HEENT: PERRLA, EOMI Neck: Supple Lungs: Clear to auscultation Cardiovascular: Regular rate, Regular Rhythm Abdomen: Soft, Non-Distended Skin: Ulcer/ Wound - VAC in place. Minimal drainage in the canister. Neurological: Cranial nerves II-XII grossly intact Psych/Mental Status: Normal Affect, Appropriate Vital Signs Temp Pulse Resp BP Pulse Ox 99.0 F 112 H 20 H 149/95 H 99 07/06/17 08:09 07/06/17 10:45 07/06/17 08:09 07/06/17 08:09 07/06/17 08:09 Oxygen Delivery Method Room Air Weight: 175 lb Body Mass Index (BMI) 34.2 Intake and Output for Last 24 Hours 07/04/17 07/05/17 07/06/17 23:59 23:59 23:59 Intake Total 2176 / 2176 3731 / 3731 1462 / 1462 Output Total 2750 / 2750 4300 / 4300 Balance 2176 / 2176 981 / 981 -2838 / -2838 Microbiology Past 72 Hours 07/04/17 11:40 Gram Stain - Final Tissue - Groin Wound Culture - Preliminary No growth-Final to follow Anaerobic Culture - Preliminary No growth in 48 hours. Medical Necessity - Tobacco Use Smoking Status: Current every day smoker Assessment/Plan 1. Right inguinal hidradenitis. 2. Right vulval hidradenitis from the mons pubis to the genitocrural area. 3 3. Smoker. 4. s/p surgical preparation right inguinal and medial thigh area with excision hidradenitis (136 cm2) and excision hidradenitis right vulval area with partial vulvectomy into deep subcutaneous tissue (from the mons pubis to the genitocrural area). 5. Mild hypertension. VAC in place. Minimal drainage in the canister. To be changed three times per week at 150 mmHg continuous suction. Home Health to assist. Patient has a lot of pain and increased spasm from the VAC. Still needed IV analgesia. Will wean to po analgesia in preparation for discharge. Anticipate discharge tomorrow. Will complete discharge instructions today and write her scripts today so her can get them filled today. Operative culture negative thus far. Continue IV antibiotics. Will discharge on Doxycycline until the cultures are available. A positive culture may necessitate antibiotic modification. Prealbumin was 25.6. Encourage nutritional supplementation with protein to help the healing process. After discharge, followup at the Wound Center in 2 weeks. If there is a plateau in the healing process, can proceed with delayed closure with skin grafting. Encouraged patient to stop smoking as it may have deleterious effects on wound healing. Her blood pressure was a little high during this hospital stay. She states she has had increased pain from the VAC. She will followup with her PCP in the next 4 weeks for further evaluation. She will also go into their office periodically before the appointment and have her BP checked. Wrote script for Doxycycline for 14 days and 2 refills. (She can use the refills in the future for flare-ups as they occur). Wrote scripts for Percocet for pain (60 tabs) and for Valium for spasm (40 tabs) . Wrote scripts for Phenergan for nausea (30 tabs) and a refill and for Colace for constipation (60 tabs).
--- NOTE | 2017-07-06 12:30 | PCM.DC ---
You will use the following diet at home:: No restrictions, Other - encourage nutritional supplementation with protein to help the healing process. Discharge Activity: May not drive while taking narcotic pain medications. May shower in (days): 2 - may shower on the days the vacc is changed. May resume sexual activity in: No Restrictions Weight Bearing Status: Weight bearing as tolerated Call your doctor if your incision/area has: Continuous Slow Oozing, Sudden Increased Bleeding, Increased Pain/ Swelling, Increased Redness, Foul Smelling Discharge, Swelling at the incision site Call your doctor if you observe: Fever of 101 or Higher, Coldness, Increased Pain, Shortness of breath, Chest pain, Calf discomfort, Uncontrolled pain Suture Line Care: - - vac changes three times per week at 150 mmHg continuous suction. Change Dressing in (Days):: 2 - vac changes three times per week. Cleanse incision/area with: Soap & Water - may cleanse the wound with soap and water on the days the vac is changed., - - may shower on the days the vac is changed. Additional Dressing/Incision Instructions:: Home Health to assist with vac changes three times per week at 150 mmHg continuous suction. may cleanse the wound with soap and water at the time of the vac change. may use skin barrier wipes as needed. Allergies/Adverse Reactions: Allergies adhesive tape Allergy (Verified 07/02/17 13:53) Rash Medications to take at Discharge Ibuprofen 200 mg PO PRN PRN 01/11/17 Multivitamin [Multiple Vitamins] 1 each PO DAILY 04/25/17 Zinc 50 mg PO DAILY 07/02/17 Adhesive Remover [Sensi-Care Adhes Remover Wipes] 1 [employer] .QODAY #50 ea 07/06/17 Diazepam [Valium] 5 mg PO 4X/DAY PRN PRN 10 Days #40 tab 07/06/17 Docusate Sodium [Colace] 100 mg PO BID #60 cap 07/06/17 Doxycycline [Vibramycin] 100 mg PO BID #28 cap 07/06/17 Oxycodone HCl/Acetaminophen [Percocet 5/325] 1 - 2 tab PO 4X/DAY PRN PRN 7 Days #60 tab 07/06/17 proMETHazine tablet [Phenergan tablet] 25 mg PO 4X/DAY PRN PRN #30 tab 07/06/17 The following prescriptions were given: Adhesive Remover [Sensi-Care Adhes Remover Wipes] 1 ea [facility] .QODAY #50 ea Diazepam [Valium] 5 mg PO 4X/DAY PRN PRN 10 Days #40 tab PRN Reason: Spasms Oxycodone HCl/Acetaminophen [Percocet 5/325] 1 - 2 tab PO 4X/DAY PRN PRN 7 Days #60 tab PRN Reason: Pain proMETHazine tablet [Phenergan tablet] 25 mg PO 4X/DAY PRN PRN #30 tab PRN Reason: NAUSEA/VOMITING Docusate Sodium [Colace] 100 mg PO BID #60 cap Doxycycline [Vibramycin] 100 mg PO BID #28 cap Primary Care Physician: Edwin Collins MD [Primary Care Provider] - Please follow up with your Primary Care Physician in: 4 weeks to evaluate hypertension. Please Follow Up With: Zi Benedict MD When: 2 weeks at wound center. call [phone] for appt. Proposed Discharge Date: 07/07/17
--- NOTE | 2017-07-06 12:36 | DCINST_ITS ---
You will use the following diet at home:: No restrictions, Other - encourage nutritional supplementation with protein to help the healing process. Discharge Activity: May not drive while taking narcotic pain medications. May shower in (days): 2 - may shower on the days the vacc is changed. May resume sexual activity in: No Restrictions Weight Bearing Status: Weight bearing as tolerated Call your doctor if your incision/area has: Continuous Slow Oozing, Sudden Increased Bleeding, Increased Pain/ Swelling, Increased Redness, Foul Smelling Discharge, Swelling at the incision site Call your doctor if you observe: Fever of 101 or Higher, Coldness, Increased Pain, Shortness of breath, Chest pain, Calf discomfort, Uncontrolled pain Suture Line Care: - - vac changes three times per week at 150 mmHg continuous suction. Change Dressing in (Days):: 2 - vac changes three times per week. Cleanse incision/area with: Soap & Water - may cleanse the wound with soap and water on the days the vac is changed., - - may shower on the days the vac is changed. Additional Dressing/Incision Instructions:: Home Health to assist with vac changes three times per week at 150 mmHg continuous suction. may cleanse the wound with soap and water at the time of the vac change. may use skin barrier wipes as needed. Allergies/Adverse Reactions: Allergies adhesive tape Allergy (Verified 07/02/17 13:53) Rash Medications to take at Discharge Ibuprofen 200 mg PO PRN PRN 01/11/17 Multivitamin [Multiple Vitamins] 1 each PO DAILY 04/25/17 Zinc 50 mg PO DAILY 07/02/17 Adhesive Remover [Sensi-Care Adhes Remover Wipes] 1 [facility] .QODAY #50 ea Diazepam [Valium] 5 mg PO 4X/DAY PRN PRN 10 Days #40 tab 07/06/17 Docusate Sodium [Colace] 100 mg PO BID #60 cap 07/06/17 Doxycycline [Vibramycin] 100 mg PO BID #28 cap 07/06/17 Oxycodone HCl/Acetaminophen [Percocet 5/325] 1 - 2 tab PO 4X/DAY PRN PRN 7 Days #60 tab 07/06/17 proMETHazine tablet [Phenergan tablet] 25 mg PO 4X/DAY PRN PRN #30 tab 07/06/17 The following prescriptions were given: Adhesive Remover [Sensi-Care Adhes Remover Wipes] 1 ea [facility] .QODAY #50 ea Diazepam [Valium] 5 mg PO 4X/DAY PRN PRN 10 Days #40 tab PRN Reason: Spasms Oxycodone HCl/Acetaminophen [Percocet 5/325] 1 - 2 tab PO 4X/DAY PRN PRN 7 Days #60 tab PRN Reason: Pain proMETHazine tablet [Phenergan tablet] 25 mg PO 4X/DAY PRN PRN #30 tab PRN Reason: NAUSEA/VOMITING Docusate Sodium [Colace] 100 mg PO BID #60 cap Doxycycline [Vibramycin] 100 mg PO BID #28 cap Primary Care Physician: Edwin Collins MD [Primary Care Provider] - Please follow up with your Primary Care Physician in: 4 weeks to evaluate hypertension. Please Follow Up With: Zi Benedict MD When: 2 weeks at wound center. call [phone] for appt. Proposed Discharge Date: 07/07/17
[2017-07-06] MEDS: diazePAM 5 MG Tablet PO ×3 (12:41→23:10)
[2017-07-06 14:05] VITALS: BP 123/79; PULSE 103; RESP 18; TEMP 36.9; O2SAT 100
[2017-07-06 20:05] VITALS: BP 132/80; PULSE 95; RESP 16; TEMP 37.1; O2SAT 97
[2017-07-07 02:05] VITALS: BP 116/63; PULSE 93; RESP 16; TEMP 37.2; O2SAT 99
[2017-07-07] MEDS: HYDROmorphone 1 MG/ML Syringe IV (03:05)
[2017-07-07] MEDS: 0.9% NaCl Peripheral Flush Adult/Peds IV (03:06)
[2017-07-07] MEDS: Cefazolin 1 GM/50 ML BAG IV ×2 (03:06→10:26)
[2017-07-07] MEDS: diazePAM 5 MG Tablet PO ×2 (05:56→12:07)
[2017-07-07] MEDS: oxyCODONE 5 MG Tablet 10 MG PO ×3 (05:56→14:14)
[2017-07-07 08:05] VITALS: BP 98/56; PULSE 86; RESP 16; TEMP 37.4; O2SAT 98
[2017-07-07] MEDS: Multivitamins,Therapeutic Tablet 1 TABLET PO (08:27)
[2017-07-07] MEDS: Docusate Sodium 100 MG Capsule PO (10:25)
[2017-07-07 10:30] VITALS: PULSE 92
--- NOTE | 2017-07-07 10:42 | NURSING ---
discharge instructions and medication discharge list faxed to [facility] of [facility] for wound vac changes. message left on voicemail to notify of discharge.
[2017-07-07 14:02] VITALS: BP 132/74; PULSE 100; RESP 18; TEMP 36.9; O2SAT 96
--- NOTE | 2017-07-07 15:17 | PCM.PN.BLA ---
Progress Note Patient was tolerating po analgesia. VAC is stable. Blood pressure is 132/74. Scripts were given to her yesterday. Discharge home today. Home Health to assist with the VAC three times per week at 150 mmHg continuous suction. Followup Wound Center in 2 weeks. Followup with her PCP in 4 weeks to further evaluate her mild hypertension.
== END 2017-07-07 14:32 | disposition home health service (06) ==
LOC: SDC 12:58
PROVIDERS: Anesthesiology; Admitting Provider Surgery; Family Provider Family Medicine; PCP Family Medicine; Visit Provider Surgery
PROC: (CPT 11462; principal; 2017-07-04 09:30)
DX: L73.2 Hidradenitis suppurativa (principal); K21.9 Gastro-esophageal reflux disease without esophagitis; F17.200 Nicotine dependence, unspecified, uncomplicated; F41.9 Anxiety disorder, unspecified; M62.838 Other muscle spasm
CPT/HCPCS: 11462; 11470; 36415; 80048; 81025; 84134; 85027; 87070; 87075; 87077; 87102; 87205; 87206; 88304; 96365; 96366; 96375; 96376; 99218; J7120; A4216; G0378; G0379; J2405

== ENCOUNTER 2017-07-29 10:00 | Outpatient (RCR) | payer MEDICAID, SELFPAY ==
[2017-07-07 00:56] VITALS: PULSE 93; RESP 16; TEMP 37.4
[2017-07-15 08:48] VITALS: BMI 34.2
--- NOTE | 2017-07-15 20:18 | PN.PCM_ITS ---
Type of Wound Date of Service: 07/15/17 Chief Complaint: Open surgical hidradenitis wound right inguinal area and right vulval area. History of Wound: Surgery 07/04/17 1. Surgical preparation right inguinal and medial thigh area with excision hidradenitis (136 cm2). 2. Excision hidradenitis right vulval area with partial vulvectomy into deep subcutaneous tissue (from the mons pubis to the genitocrural area). Wound care - VAC. Operative culture - Aerococcus viridans. Was discharged on Doxycyline. Progress of Wound: Improved. - Physical Exam Vital Signs Temp Pulse Resp 99.3 F H 93 16 07/07/17 00:56 07/07/17 00:56 07/07/17 00:56 Wound Measurements and Assessment ERMELINDA - Nurse 1 - General Ulcer Measurement Start: 07/15/17 08:48 Freq: Status: Active Protocol: Activity Type Activity Date Activity User E-Sign Co-Sign Detail Recorded Client Recorded Date Recorded By Document 07/15/17 08:48 DV [id number] 07/15/17 09:01 DV 07/15/17 08:48 Wound Center Nurse 1 [Ulcer Assessment] #4 Right Inguinal Hidradenitis -Combined with other wound No -Current Size (cm) - Length 17.0 -Current Size (cm) - Width 8.0 -Current Size (cm) - Depth 1.9 -Total Square Cm 136.00 -Photo Taken Yes -Epithelialization None Present -Tunneling No -Undermining/Tunneling No -Circular Undermining No -Classification - Thickness Full Thickness without Exposed Support Structure -Exudate Amt Large (67-100%) -Exudate Type Serous -Wound Margin Distinct, Outline Attached -Granulation Amt Large (67-100%) -Granulation Quality Red -Slough/Fibrin Yes -Necrosis Amt Medium (34-66%) -Necrotic Tissue Type Adherent Slough -Structure Exposed Fat Layer Exposed -Texture (Lashell-wound Skin Appearance) Assessed Localized Edema Scarring -Moisture (Lashell-wound Skin Appearance Assessed ) Weeping -Color (Lashell-wound Skin Appearance) Assessed Erythema -Temperature (Lashell-wound Skin No Abnormality Appearance) (Pt Warm) -Tenderness on Palpation (Lashell-wound No Skin Appearance) -Ulcer Cleansing Wound Cleanser -Foul Odor after Cleansing No -Anesthetic Used 4% Lidocaine Solution ERMELINDA - Nurse 2 - General Ulcer CM Notes Start: 07/15/17 08:48 Freq: Status: Active Protocol: Activity Type Activity Date Activity User E-Sign Co-Sign Detail Recorded Client Recorded Date Recorded By Document 07/15/17 09:30 [id number] [id number] 07/15/17 09:30 07/15/17 09:30 Wound Center Nurse 2 [Procedure/Treatment] -Correct Patient No -Correct Side, Site, Position No -Correct Procedure No -Procedure Performed No -Bleeding Controlled with NA [See Physician Procedure note for Specifics] Pain Scale: 0-10 Numeric [Pain] -Is Patient Pain Free? Yes Debridement Note Post-Debridement Measurements/Treatment - Nurse 2 - General Ulcer CM Notes Start: 07/15/17 08:48 Freq: Status: Active Protocol: Activity Type Activity Date Activity User E-Sign Co-Sign Detail Recorded Client Recorded Date Recorded By Document 07/15/17 09:30 JF [id number] 07/15/17 09:30 07/15/17 09:30 Wound Center Nurse 2 #4 Right Inguinal Hidradenitis -Correct Patient No -Correct Side, Site, Position No -Correct Procedure No -Procedure Performed No -Bleeding Controlled with NA Pain Scale: 0-10 Numeric Is Patient Pain Free? Yes Wound debrided: #4 Right inguinal and vulval area. Laterality: Right Wound Grade/Stage: 2. No debridement was completed today - she recently had surgery on 07/04/17. Assessment/Plan Assessment: 1. Right inguinal hidradenitis. 2. Right vulval hidradenitis from the mons pubis to the genitocrural area. 3. Left breast hidradenitis in inframammary crease. 4. Recent excision left inguinal hidradenitis. 5. Recent excision left axillary hidradenitis. 6. Smoker. 7. s/p surgical preparation right inguinal and medial thigh area with excision hidradenitis ( 136 cm2) and excision hidradenitis right vulval area with partial vulvectomy into deep subcutaneous tissue (from the mons pubis to the genitocrural area). Plan: Continue VAC. She is being treated perioperatively with Doxycycline. There is no evidence of infection. Augmentin is generally a better choice. If any issues develop with the wound, will switch antibiotics. She takes nutritional supplementation with protein to help the healing process. Renewed her Percocet for pain (60 tabs). Renewed her Valium for spasm, 10 mg, (30 tabs) . Encouraged the patient to stop smoking as it may have deleterious effects on wound healing. Followup 2 weeks.
[2017-07-29 10:02] VITALS: BP 131/87; PULSE 107; RESP 16; TEMP 37.1; BMI 34.2
--- NOTE | 2017-07-29 18:39 | PCM.WC.PN ---
Type of Wound Date of Service: 07/29/17 Chief Complaint: Open surgical hidradenitis wound right inguinal area and right vulval area. History of Wound: Surgery 07/04/17 1. Surgical preparation right inguinal and medial thigh area with excision hidradenitis (136 cm2). 2. Excision hidradenitis right vulval area with partial vulvectomy into deep subcutaneous tissue (from the mons pubis to the genitocrural area). Wound care - VAC. Operative culture - Aerococcus viridans. Was discharged on Doxycyline. Progress of Wound: Improved. - Physical Exam Vital Signs Temp Pulse Resp BP 98.7 F 107 H 16 131/87 H 07/29/17 10:02 07/29/17 10:02 07/29/17 10:02 07/29/17 10:02 Wound Measurements and Assessment - Nurse 1 - General Ulcer Measurement Start: 07/15/17 08:48 Freq: Status: Active Protocol: Activity Type Activity Date Activity User E-Sign Co-Sign Detail Recorded Client Recorded Date Recorded By Document 07/29/17 10:02 [facility] [id number] 07/29/17 10:19 [facility] 07/29/17 10:02 Wound Center Nurse 1 [Ulcer Assessment] #4 Right Inguinal Hidradenitis -Combined with other wound No -Current Size (cm) - Length 14.7 -Current Size (cm) - Width 3.5 -Current Size (cm) - Depth 0.3 -Total Square Cm 51.45 -Photo Taken No -Epithelialization Small 1-33% -Tunneling No -Undermining/Tunneling No -Circular Undermining No -Exudate Amt Small (1-33%) -Exudate Type Sanguineous -Wound Margin Distinct, Outline Attached -Granulation Amt Large (67-100%) -Granulation Quality Red -Slough/Fibrin No -Necrosis Amt None Present (0 %) -Texture (Lashell-wound Skin Appearance) Scarring -Moisture (Lashell-wound Skin Appearance Assessed ) -Color (Lashell-wound Skin Appearance) Assessed -Temperature (Lashell-wound Skin No Abnormality Appearance) (Pt Warm) -Tenderness on Palpation (Lashell-wound Yes Skin Appearance) -Ulcer Cleansing Wound Cleanser -Foul Odor after Cleansing No -Anesthetic Used 4% Lidocaine Solution - Nurse 2 - General Ulcer CM Notes Start: 07/15/17 08:48 Freq: Status: Active Protocol: Activity Type Activity Date Activity User E-Sign Co-Sign Detail Recorded Client Recorded Date Recorded By Document 07/29/17 10:53 JF [id number] 07/29/17 10:53 07/29/17 10:53 Wound Center Nurse 2 [Procedure/Treatment] -Time 10:53 -Correct Patient Yes -Correct Side, Site, Position Yes -Correct Procedure Yes -Procedure Performed Yes -Type of Procedure Debridement -Clinical Debridement Subcutaneous -Post Debridement Size (cm) - Length 14.8 -Post Debridement Size (cm) - Width 3.6 -Post Debridement Size (cm) - Depth 0.3 -Total Square Cm 53.28 -Wound/Ulcer Outcome Not Healed -Ulcer Cleansing Rinsed/ Irrigated with Saline -Foul Odor after Cleansing No -Bioengineered Tissue No -Bleeding Controlled with Pressure -Treatment Response Procedure Tolerated Well [See Physician Procedure note for Specifics] Pain Scale: 0-10 Numeric [Pain] -Is Patient Pain Free? Yes Debridement Note Post-Debridement Measurements/Treatment WC - Nurse 2 - General Ulcer CM Notes Start: 07/15/17 08:48 Freq: Status: Active Protocol: Activity Type Activity Date Activity User E-Sign Co-Sign Detail Recorded Client Recorded Date Recorded By Document 07/15/17 09:30 JF [id number] 07/15/17 09:30 Document 07/29/17 10:53 [id number] 07/29/17 10:53 07/15/17 07/29/17 09:30 10:53 Wound Center Nurse 2 #4 Right Inguinal Hidradenitis -Time 10:53 -Correct Patient No Yes -Correct Side, Site, Position No Yes -Correct Procedure No Yes -Procedure Performed No Yes -Type of Procedure Debridement -Clinical Debridement Subcutaneous -Post Debridement Size (cm) - Length 14.8 -Post Debridement Size (cm) - Width 3.6 -Post Debridement Size (cm) - Depth 0.3 -Total Square Cm 53.28 -Wound/Ulcer Outcome Not Healed -Ulcer Cleansing Rinsed/ Irrigated with Saline -Foul Odor after Cleansing No -Bioengineered Tissue No -Bleeding Controlled with NA Pressure -Treatment Response Procedure Tolerated Well Pain Scale: 0-10 Numeric Is Patient Pain Free? Yes Yes Wound debrided: #4 Right inguinal and vulval area. Laterality: Right Wound Grade/Stage: 2. Type of Debridement: Excisional debridement Anesthesia Used: 4% Lidocaine Solution Depth: Down to and including healthy tissue, in the subcutaneous layer Percentage of wound debrided: 100 Instrument Used: 7mm curette Tissue Removed: subcutaneous tissue. Severity: Fat Layer Exposed Amount of bleeding with debridement: Mild Bleeding Controlled with: Pressure Patient tolerated procedure well Assessment/Plan Assessment: 1. Right inguinal hidradenitis. 2. Right vulval hidradenitis from the mons pubis to the genitocrural area. 3. Left breast hidradenitis in inframammary crease. 4. Recent excision left inguinal hidradenitis. 5. Recent excision left axillary hidradenitis. 6. Smoker. 7. s/p surgical preparation right inguinal and medial thigh area with excision hidradenitis (136 cm2) and excision hidradenitis right vulval area with partial vulvectomy into deep subcutaneous tissue (from the mons pubis to the genitocrural area). Plan: Continue VAC. Having some pain. Will add adaptic. She is being treated perioperatively with Doxycycline. There is no evidence of infection. Augmentin is generally a better choice. If any issues develop with the wound, will switch antibiotics. She takes nutritional supplementation with protein to help the healing process. Renewed her Percocet for pain (60 tabs). Renewed her Valium for spasm, 10 mg, (30 tabs). Encouraged the patient to stop smoking as it may have deleterious effects on wound healing. Discussed further operative debridement and skin grafting. She ariel think about it and let me know. Followup 2 weeks.
--- NOTE | 2017-07-30 11:39 | PN.PCM_ITS ---
Type of Wound Date of Service: 07/29/17 Chief Complaint: Open surgical hidradenitis wound right inguinal area and right vulval area. History of Wound: Surgery 07/04/17 1. Surgical preparation right inguinal and medial thigh area with excision hidradenitis (136 cm2). 2. Excision hidradenitis right vulval area with partial vulvectomy into deep subcutaneous tissue (from the mons pubis to the genitocrural area). Wound care - VAC. Operative culture - Aerococcus viridans. Was discharged on Doxycyline. Progress of Wound: Improved. - Physical Exam Vital Signs Temp Pulse Resp BP 98.7 F 107 H 16 131/87 H 07/29/17 10:02 07/29/17 10:02 07/29/17 10:02 07/29/17 10:02 Wound Measurements and Assessment - Nurse 1 - General Ulcer Measurement Start: 07/15/17 08:48 Freq: Status: Active Protocol: Activity Type Activity Date Activity User E-Sign Co-Sign Detail Recorded Client Recorded Date Recorded By Document 07/29/17 10:02 [facility] [id number] 07/29/17 10:19 [facility] 07/29/17 10:02 Wound Center Nurse 1 [Ulcer Assessment] #4 Right Inguinal Hidradenitis -Combined with other wound No -Current Size (cm) - Length 14.7 -Current Size (cm) - Width 3.5 -Current Size (cm) - Depth 0.3 -Total Square Cm 51.45 -Photo Taken No -Epithelialization Small 1-33% -Tunneling No -Undermining/Tunneling No -Circular Undermining No -Exudate Amt Small (1-33%) -Exudate Type Sanguineous -Wound Margin Distinct, Outline Attached -Granulation Amt Large (67-100%) -Granulation Quality Red -Slough/Fibrin No -Necrosis Amt None Present (0 %) -Texture (Lashell-wound Skin Appearance) Scarring -Moisture (Lashell-wound Skin Appearance Assessed ) -Color (Lashell-wound Skin Appearance) Assessed -Temperature (Lashell-wound Skin No Abnormality Appearance) (Pt Warm) -Tenderness on Palpation (Lashell-wound Yes Skin Appearance) -Ulcer Cleansing Wound Cleanser -Foul Odor after Cleansing No -Anesthetic Used 4% Lidocaine Solution - Nurse 2 - General Ulcer CM Notes Start: 07/15/17 08:48 Freq: Status: Active Protocol: Activity Type Activity Date Activity User E-Sign Co-Sign Detail Recorded Client Recorded Date Recorded By Document 07/29/17 10:53 JF [id number] 07/29/17 10:53 07/29/17 10:53 Wound Center Nurse 2 [Procedure/Treatment] -Time 10:53 -Correct Patient Yes -Correct Side, Site, Position Yes -Correct Procedure Yes -Procedure Performed Yes -Type of Procedure Debridement -Clinical Debridement Subcutaneous -Post Debridement Size (cm) - Length 14.8 -Post Debridement Size (cm) - Width 3.6 -Post Debridement Size (cm) - Depth 0.3 -Total Square Cm 53.28 -Wound/Ulcer Outcome Not Healed -Ulcer Cleansing Rinsed/ Irrigated with Saline -Foul Odor after Cleansing No -Bioengineered Tissue No -Bleeding Controlled with Pressure -Treatment Response Procedure Tolerated Well [See Physician Procedure note for Specifics] Pain Scale: 0-10 Numeric [Pain] -Is Patient Pain Free? Yes Debridement Note Post-Debridement Measurements/Treatment WC - Nurse 2 - General Ulcer CM Notes Start: 07/15/17 08:48 Freq: Status: Active Protocol: Activity Type Activity Date Activity User E-Sign Co-Sign Detail Recorded Client Recorded Date Recorded By Document 07/15/17 09:30 JF [id number] 07/15/17 09:30 Document 07/29/17 10:53 [id number] 07/29/17 10:53 07/15/17 07/29/17 09:30 10:53 Wound Center Nurse 2 #4 Right Inguinal Hidradenitis -Time 10:53 -Correct Patient No Yes -Correct Side, Site, Position No Yes -Correct Procedure No Yes -Procedure Performed No Yes -Type of Procedure Debridement -Clinical Debridement Subcutaneous -Post Debridement Size (cm) - Length 14.8 -Post Debridement Size (cm) - Width 3.6 -Post Debridement Size (cm) - Depth 0.3 -Total Square Cm 53.28 -Wound/Ulcer Outcome Not Healed -Ulcer Cleansing Rinsed/ Irrigated with Saline -Foul Odor after Cleansing No -Bioengineered Tissue No -Bleeding Controlled with NA Pressure -Treatment Response Procedure Tolerated Well Pain Scale: 0-10 Numeric Is Patient Pain Free? Yes Yes Wound debrided: #4 Right inguinal and vulval area. Laterality: Right Wound Grade/Stage: 2. Type of Debridement: Excisional debridement Anesthesia Used: 4% Lidocaine Solution Depth: Down to and including healthy tissue, in the subcutaneous layer Percentage of wound debrided: 100 Instrument Used: 7mm curette Tissue Removed: subcutaneous tissue. Severity: Fat Layer Exposed Amount of bleeding with debridement: Mild Bleeding Controlled with: Pressure Patient tolerated procedure well Assessment/Plan Assessment: 1. Right inguinal hidradenitis. 2. Right vulval hidradenitis from the mons pubis to the genitocrural area. 3. Left breast hidradenitis in inframammary crease. 4. Recent excision left inguinal hidradenitis. 5. Recent excision left axillary hidradenitis. 6. Smoker. 7. s/p surgical preparation right inguinal and medial thigh area with excision hidradenitis ( 136 cm2) and excision hidradenitis right vulval area with partial vulvectomy into deep subcutaneous tissue (from the mons pubis to the genitocrural area). Plan: Continue VAC. Having some pain. Will add adaptic. She is being treated perioperatively with Doxycycline. There is no evidence of infection. Augmentin is generally a better choice. If any issues develop with the wound, will switch antibiotics. She takes nutritional supplementation with protein to help the healing process. Renewed her Percocet for pain (60 tabs). Renewed her Valium for spasm, 10 mg, (30 tabs). Encouraged the patient to stop smoking as it may have deleterious effects on wound healing. Discussed further operative debridement and skin grafting. She ariel think about it and let me know. Followup 2 weeks.
== END 2017-08-05 23:59 ==
LOC: WC 10:00
PROVIDERS: Family Provider Family Medicine; PCP Family Medicine; Visit Provider Surgery
DX: L73.2 Hidradenitis suppurativa (principal); F17.200 Nicotine dependence, unspecified, uncomplicated
CPT/HCPCS: 11042; 11045; 97606; 99213; G0463

== ENCOUNTER 2017-08-07 01:13 | Emergency (ER) | payer MEDICAID, SELFPAY ==
[2017-08-07 01:14] VITALS: BP 131/83; PULSE 107; RESP 17; TEMP 37.1; O2SAT 97; BMI 34.8
--- NOTE | 2017-08-07 02:03 | ED.DCSUM_ITS ---
- ER Visit Summary Date of Service: 08/07/17 Chief Complaint: Wound VAC malfunction History of Present Illness: The patient is a 37 F presenting for evaluation due to wound VAC malfunction. Patient has a wound VAC on her right groin secondary to surgery that was performed on hidradenitis. She noticed that it was leaking tonight, she is due to have it changed tomorrow, but was unable to get it to seal so she presented to see if someone at this facility could potentially get her went back to seal. She denies any pain or infectious signs or symptoms such as fever or drainage. Physical Examination: Physical exam unremarkable except for right groin exam. This shows the wound VAC to be clean and dry with evidence of detachment close to the patient's labia. No evidence of surrounding infection. Test Results: None indicated Emergency Department Course and Treatment: Patient presented with a wound VAC malfunction, it was replaced by nursing staff, patient will have the dressing and VAC changed completely by her home health care tomorrow. Disposition: Discharge Impression: 1. Visit for wound VAC malfunction This note was generated with [employer] dictation software. It may contain incorrect words, spelling, and punctuation that were not noted in review of the chart prior to signing ED Disposition - Plan for ED Patient: Disposition: Home or Assisted Living Chief Complaint: Wound Check Diagnosis: Encounter for management of wound VAC Instructions: ED Wound Check Post Op No Infec Referrals: Edwin Collins MD [Primary Care Provider] - As Needed
[2017-08-07 02:24] VITALS: BP 131/83; PULSE 71; RESP 17; O2SAT 98
== END 2017-08-07 02:25 | disposition home or self-care (01) ==
PROVIDERS: Emergency Provider Emergency Medicine; Family Provider Family Medicine; PCP Family Medicine
DX: T85.618A Breakdown (mechanical) of other specified internal prosthetic devices, implants and grafts, initial encounter (principal); L73.2 Hidradenitis suppurativa; Z79.891 Long term (current) use of opiate analgesic; Z79.899 Other long term (current) drug therapy
CPT/HCPCS: 99282

== ENCOUNTER 2017-08-19 10:30 | Outpatient (RCR) | payer MEDICAID, SELFPAY ==
[2017-08-06 00:46] VITALS: PULSE 107; RESP 16; TEMP 37.1
[2017-08-12 10:26] VITALS: BP 127/75; PULSE 115; RESP 16; TEMP 36.7
--- NOTE | 2017-08-12 21:49 | PN.PCM_ITS ---
Type of Wound Date of Service: 08/12/17 Chief Complaint: Nonhealing hidradenitis ulcer right inguinal area and right vulval area. History of Wound: Surgery 07/04/17 1. Surgical preparation right inguinal and medial thigh area with excision hidradenitis (136 cm2). 2. Excision hidradenitis right vulval area with partial vulvectomy into deep subcutaneous tissue (from the mons pubis to the genitocrural area). Wound care - VAC. Operative culture - Aerococcus viridans. Was discharged on Doxycyline. Progress of Wound: Improved. - Physical Exam Vital Signs Temp Pulse Resp BP 98.0 F 115 H 16 127/75 H 08/12/17 10:26 08/12/17 10:26 08/12/17 10:26 08/12/17 10:26 Wound Measurements and Assessment WC - Nurse 1 - General Ulcer Measurement Start: 08/12/17 10:25 Freq: Status: Active Protocol: Activity Type Activity Date Activity User E-Sign Co-Sign Detail Recorded Client Recorded Date Recorded By Document 08/12/17 10:26 [id number] 08/12/17 10:30 08/12/17 10:26 Wound Center Nurse 1 [Ulcer Assessment] #4 Right Inguinal Hidradenitis -Combined with other wound No -Current Size (cm) - Length 11.3 -Current Size (cm) - Width 3.9 -Current Size (cm) - Depth 0.1 -Total Square Cm 44.07 -Photo Taken No -Epithelialization Large 67-100% -Tunneling No -Undermining/Tunneling No -Circular Undermining No -Classification - Thickness Full Thickness without Exposed Support Structure -Exudate Amt Large (67-100%) -Exudate Type Serosanguineous -Wound Margin Distinct, Outline Attached -Granulation Amt Large (67-100%) -Granulation Quality Red -Slough/Fibrin Yes -Necrosis Amt Small (1-33%) -Necrotic Tissue Type Adherent Slough -Structure Exposed Fascia Fat Layer Exposed -Texture (Lashell-wound Skin Appearance) Friable Scarring -Moisture (Lashell-wound Skin Appearance No Abnormality ) -Color (Lashell-wound Skin Appearance) No Abnormality -Temperature (Lashell-wound Skin No Abnormality Appearance) (Pt Warm) -Tenderness on Palpation (Lashell-wound No Skin Appearance) -Ulcer Cleansing hibiclens -Anesthetic Used 4% Lidocaine Solution [Edema Assessment] -Lower Limb Edema Present No WC - Nurse 2 - General Ulcer CM Notes Start: 08/12/17 10:25 Freq: Status: Active Protocol: Activity Type Activity Date Activity User E-Sign Co-Sign Detail Recorded Client Recorded Date Recorded By Document 08/12/17 10:53 [id number] 08/12/17 10:54 [email or web address] 08/12/17 10:53 Wound Center Nurse 2 [Procedure/Treatment] #4 Right Inguinal Hidradenitis -Time 10:53 -Correct Patient Yes -Correct Side, Site, Position Yes -Correct Procedure Yes -Procedure Performed Yes -Type of Procedure Debridement -Clinical Debridement Subcutaneous -Post Debridement Size (cm) - Length 11.3 -Post Debridement Size (cm) - Width 4 -Post Debridement Size (cm) - Depth 0.1 -Total Square Cm 45.2 -Wound/Ulcer Outcome Not Healed -Ulcer Cleansing Rinsed/ Irrigated with Saline -Foul Odor after Cleansing No -Bioengineered Tissue No -Bleeding Controlled with Pressure -Treatment Response Procedure Tolerated Well [See Physician Procedure note for Specifics] Pain Scale: 0-10 Numeric [Pain] -Is Patient Pain Free? Yes Debridement Note Post-Debridement Measurements/Treatment WC - Nurse 2 - General Ulcer CM Notes Start: 08/12/17 10:25 Freq: Status: Active Protocol: Activity Type Activity Date Activity User E-Sign Co-Sign Detail Recorded Client Recorded Date Recorded By Document 08/12/17 10:53 [id number] 08/12/17 10:54 08/12/17 10:53 Wound Center Nurse 2 #4 Right Inguinal Hidradenitis -Time 10:53 -Correct Patient Yes -Correct Side, Site, Position Yes -Correct Procedure Yes -Procedure Performed Yes -Type of Procedure Debridement -Clinical Debridement Subcutaneous -Post Debridement Size (cm) - Length 11.3 -Post Debridement Size (cm) - Width 4 -Post Debridement Size (cm) - Depth 0.1 -Total Square Cm 45.2 -Wound/Ulcer Outcome Not Healed -Ulcer Cleansing Rinsed/ Irrigated with Saline -Foul Odor after Cleansing No -Bioengineered Tissue No -Bleeding Controlled with Pressure -Treatment Response Procedure Tolerated Well Pain Scale: 0-10 Numeric Is Patient Pain Free? Yes Wound debrided: #4 Right inguinal area and vulval area. Laterality: Right Wound Grade/Stage: 2. Type of Debridement: Excisional debridement Anesthesia Used: 4% Lidocaine Solution Depth: Down to and including healthy tissue, in the subcutaneous layer Percentage of wound debrided: 100 Instrument Used: 5mm curette Tissue Removed: subcutaneous tissue. Severity: Fat Layer Exposed Amount of bleeding with debridement: Mild Bleeding Controlled with: Pressure Patient tolerated procedure well Assessment/Plan Assessment: 1. Right inguinal hidradenitis. 2. Right vulval hidradenitis from the mons pubis to the genitocrural area. 3. Left breast hidradenitis in inframammary crease. 4. Recent excision left inguinal hidradenitis. 5. Recent excision left axillary hidradenitis. 6. Smoker. 7. s/p surgical preparation right inguinal and medial thigh area with excision hidradenitis ( 136 cm2) and excision hidradenitis right vulval area with partial vulvectomy into deep subcutaneous tissue (from the mons pubis to the genitocrural area). Plan: Continue VAC. Having some pain. Will add adaptic. She is being treated perioperatively with Doxycycline. There is no evidence of infection. Augmentin is generally a better choice. If any issues develop with the wound, will switch antibiotics. She takes nutritional supplementation with protein to help the healing process. She has enough pain meds at the present time. Encouraged the patient to stop smoking as it may have deleterious effects on wound healing. Discussed further operative debridement and skin grafting. She ariel think about it and let me know. Followup one week.
--- NOTE | 2017-08-19 23:47 | PCM.WC.PN ---
Type of Wound Date of Service: 08/19/17 Chief Complaint: Nonhealing hidradenitis ulcer right inguinal area and right vulval area. History of Wound: Surgery 07/04/17 1. Surgical preparation right inguinal and medial thigh area with excision hidradenitis (136 cm2). 2. Excision hidradenitis right vulval area with partial vulvectomy into deep subcutaneous tissue (from the mons pubis to the genitocrural area). Wound care - VAC. Operative culture - Aerococcus viridans. Was discharged on Doxycyline. Progress of Wound: Improved. - Physical Exam Vital Signs Temp Pulse Resp BP 98.0 F 115 H 16 127/75 H 08/12/17 10:26 08/12/17 10:26 08/12/17 10:26 08/12/17 10:26 Wound Measurements and Assessment - Nurse 1 - General Ulcer Measurement Start: 08/12/17 10:25 Freq: Status: Active Protocol: Activity Type Activity Date Activity User E-Sign Co-Sign Detail Recorded Client Recorded Date Recorded By Document 08/19/17 10:38 [facility] [id number] 08/19/17 10:50 [facility] 08/19/17 10:38 Wound Center Nurse 1 [Ulcer Assessment] #4 Right Inguinal Hidradenitis -Combined with other wound No -Current Size (cm) - Length 9.5 -Current Size (cm) - Width 3.1 -Current Size (cm) - Depth 0.1 -Total Square Cm 29.45 -Date of Last Picture (Recall this 08/19/17 field) -Photo Taken Yes -Epithelialization Small 1-33% -Tunneling No -Undermining/Tunneling No -Circular Undermining No -Wound Margin Distinct, Outline Attached -Granulation Amt Large (67-100%) -Granulation Quality Red -Slough/Fibrin No -Necrosis Amt None Present (0 %) -Texture (Lashell-wound Skin Appearance) Scarring -Moisture (Lashell-wound Skin Appearance Assessed ) -Color (Lashell-wound Skin Appearance) Assessed -Temperature (Lashell-wound Skin No Abnormality Appearance) (Pt Warm) -Tenderness on Palpation (Lashell-wound Yes Skin Appearance) -Ulcer Cleansing Wound Cleanser -Foul Odor after Cleansing No -Anesthetic Used 4% Lidocaine Solution WC - Nurse 2 - General Ulcer CM Notes Start: 08/12/17 10:25 Freq: Status: Active Protocol: Activity Type Activity Date Activity User E-Sign Co-Sign Detail Recorded Client Recorded Date Recorded By Document 08/19/17 11:01 [id number] 08/19/17 11:03 08/19/17 11:01 Wound Center Nurse 2 [Procedure/Treatment] -Time 11:02 -Correct Patient Yes -Correct Side, Site, Position Yes -Correct Procedure Yes -Procedure Performed Yes -Type of Procedure Debridement -Clinical Debridement Subcutaneous -Post Debridement Size (cm) - Length 9.5 -Post Debridement Size (cm) - Width 3.2 -Post Debridement Size (cm) - Depth 0.1 -Total Square Cm 30.40 -Wound/Ulcer Outcome Not Healed -Ulcer Cleansing Rinsed/ Irrigated with Saline -Foul Odor after Cleansing No -Bioengineered Tissue No -Bleeding Controlled with Pressure -Treatment Response Procedure Tolerated Well [See Physician Procedure note for Specifics] Pain Scale: 0-10 Numeric [Pain] -Is Patient Pain Free? Yes Debridement Note Post-Debridement Measurements/Treatment WC - Nurse 2 - General Ulcer CM Notes Start: 08/12/17 10:25 Freq: Status: Active Protocol: Activity Type Activity Date Activity User E-Sign Co-Sign Detail Recorded Client Recorded Date Recorded By Document 08/12/17 10:53 [id number] 08/12/17 10:54 Document 08/19/17 11:01 [id number] 08/19/17 11:03 08/12/17 08/19/17 10:53 11:01 Wound Center Nurse 2 #4 Right Inguinal Hidradenitis -Time 10:53 11:02 -Correct Patient Yes Yes -Correct Side, Site, Position Yes Yes -Correct Procedure Yes Yes -Procedure Performed Yes Yes -Type of Procedure Debridement Debridement -Clinical Debridement Subcutaneous Subcutaneous -Post Debridement Size (cm) - Length 11.3 9.5 -Post Debridement Size (cm) - Width 4 3.2 -Post Debridement Size (cm) - Depth 0.1 0.1 -Total Square Cm 45.2 30.40 -Wound/Ulcer Outcome Not Healed Not Healed -Ulcer Cleansing Rinsed/ Rinsed/ Irrigated with Irrigated with Saline Saline -Foul Odor after Cleansing No No -Bioengineered Tissue No No -Bleeding Controlled with Pressure Pressure -Treatment Response Procedure Procedure Tolerated Well Tolerated Well Pain Scale: 0-10 Numeric Is Patient Pain Free? Yes Yes Wound debrided: #4 Right inguinal area and right vulval area. Laterality: Right Wound Grade/Stage: 2. Type of Debridement: Excisional debridement Anesthesia Used: 4% Lidocaine Solution Depth: Down to and including healthy tissue, in the subcutaneous layer Percentage of wound debrided: 100 Instrument Used: 7mm curette Tissue Removed: subcutaneous tissue Severity: Fat Layer Exposed Amount of bleeding with debridement: Mild Bleeding Controlled with: Pressure Patient tolerated procedure well Assessment/Plan Assessment: 1. Right inguinal hidradenitis. 2. Right vulval hidradenitis from the mons pubis to the genitocrural area. 3. Left breast hidradenitis in inframammary crease. 4. Recent excision left inguinal hidradenitis. 5. Recent excision left axillary hidradenitis. 6. Smoker. 7. s/p surgical preparation right inguinal and medial thigh area with excision hidradenitis (136 cm2) and excision hidradenitis right vulval area with partial vulvectomy into deep subcutaneous tissue (from the mons pubis to the genitocrural area). Plan: Stop the VAC. Will begin Silver dressing changes daily. She is being treated perioperatively with Doxycycline and is finishing them. There is no evidence of infection. Augmentin is generally a better choice. If any issues develop with the wound, will switch antibiotics. She takes nutritional supplementation with protein to help the healing process. Renewed her Percocet for pain, one tab, (30 tabs). Encouraged the patient to stop smoking as it may have deleterious effects on wound healing. Discussed further operative debridement and skin grafting. She ariel think about it and let me know. Followup 3 weeks.
== END 2017-09-05 23:59 ==
LOC: WC 10:30
PROVIDERS: Family Provider Family Medicine; PCP Family Medicine; Visit Provider Surgery
DX: L73.2 Hidradenitis suppurativa (principal); F17.200 Nicotine dependence, unspecified, uncomplicated; L98.492 Non-pressure chronic ulcer of skin of other sites with fat layer exposed
CPT/HCPCS: 11042; 11045; 97605

== ENCOUNTER 2017-10-07 10:55 | Outpatient (RCR) | payer MEDICAID, SELFPAY ==
[2017-10-07 12:26] VITALS: BP 131/72; PULSE 74; RESP 16; TEMP 36.1
--- NOTE | 2017-10-07 23:52 | PCM.WC.PN ---
Type of Wound Date of Service: 10/07/17 Chief Complaint: Nonhealing hidradenitis ulcer right inguinal area and right vulval area. History of Wound: Surgery 07/04/17 1. Surgical preparation right inguinal and medial thigh area with excision hidradenitis (136 cm2). 2. Excision hidradenitis right vulval area with partial vulvectomy into deep subcutaneous tissue (from the mons pubis to the genitocrural area). Wound care - VAC. Operative culture - Aerococcus viridans. Was discharged on Doxycyline. Progress of Wound: Healed. - Physical Exam Vital Signs Temp Pulse Resp BP 97.0 F L 74 16 131/72 H 10/07/17 12:26 10/07/17 12:26 10/07/17 12:26 10/07/17 12:26 General: Alert, Oriented x3 HEENT: PERRLA, EOMI Oral: Moist Mucosa Neck: Supple Skin: Ulcer/ Wound - the right inguinal and vulval ulcer has healed. Wound Measurements and Assessment WC - Nurse 1 - General Ulcer Measurement Start: 10/07/17 12:26 Freq: Status: Active Protocol: Activity Type Activity Date Activity User E-Sign Co-Sign Detail Recorded Client Recorded Date Recorded By Document 10/07/17 12:26 ROSS [id number] 10/07/17 12:34 ROSS 10/07/17 12:26 Wound Center Nurse 1 [Ulcer Assessment] #4 Right Inguinal Hidradenitis -Combined with other wound No -Current Size (cm) - Length 0.1 -Current Size (cm) - Width 0.1 -Current Size (cm) - Depth 0.1 -Total Square Cm 0.01 -Date of Last Picture (Recall this 10/07/17 field) -Photo Taken Yes -Epithelialization Large 67-100% -Tunneling No -Undermining/Tunneling No -Circular Undermining No -Classification - Thickness Full Thickness without Exposed Support Structure -Exudate Amt None Present (0 %) -Wound Margin Distinct, Outline Attached -Granulation Amt None Present (0 %) -Granulation Quality N/A -Slough/Fibrin No -Necrosis Amt None Present (0 %) -Structure Exposed N/A -Texture (Lashell-wound Skin Appearance) Scarring -Moisture (Lashell-wound Skin Appearance No Abnormality ) -Color (Lashell-wound Skin Appearance) No Abnormality -Temperature (Lashell-wound Skin No Abnormality Appearance) (Pt Warm) -Tenderness on Palpation (Lashell-wound No Skin Appearance) -Ulcer Cleansing Rinsed/ Irrigated with Saline -Foul Odor after Cleansing No WC - Nurse 2 - General Ulcer CM Notes Start: 10/07/17 12:26 Freq: Status: Active Protocol: Activity Type Activity Date Activity User E-Sign Co-Sign Detail Recorded Client Recorded Date Recorded By Document 10/07/17 13:14 [id number] [id number] 10/07/17 13:16 10/07/17 13:14 Wound Center Nurse 2 [Procedure/Treatment] -Correct Patient No -Correct Side, Site, Position No -Correct Procedure No -Procedure Performed No -Wound/Ulcer Outcome Healed- Epithelialized [See Physician Procedure note for Specifics] Pain Scale: 0-10 Numeric [Pain] -Is Patient Pain Free? Yes Neurological: Cranial nerves II-XII grossly intact Psych/Mental Status: Normal Affect, Appropriate Debridement Note Post-Debridement Measurements/Treatment WC - Nurse 2 - General Ulcer CM Notes Start: 10/07/17 12:26 Freq: Status: Active Protocol: Activity Type Activity Date Activity User E-Sign Co-Sign Detail Recorded Client Recorded Date Recorded By Document 10/07/17 13:14 JF [id number] 10/07/17 13:16 10/07/17 13:14 Wound Center Nurse 2 #4 Right Inguinal Hidradenitis -Correct Patient No -Correct Side, Site, Position No -Correct Procedure No -Procedure Performed No -Wound/Ulcer Outcome Healed- Epithelialized Pain Scale: 0-10 Numeric Is Patient Pain Free? Yes Wound debrided: #4 Right inguinal and vulval area. Laterality: Right Wound Grade/Stage: 2. No debridement was completed today - the ulcer has healed. Assessment/Plan Assessment: 1. Hidradenitis ulcer right inguinal and vulval area, healed. 2. Right inguinal hidradenitis. 3. Right vulval hidradenitis from the mons pubis to the genitocrural area. 4. Smoker. 5. s/p surgical preparation right inguinal and medial thigh area with excision hidradenitis (136 cm2) and excision hidradenitis right vulval area with partial vulvectomy into deep subcutaneous tissue (from the mons pubis to the genitocrural area). Plan: The ulcer is healed. Massage the scar with skin lotion daily to help soften up the scar. She has no difficulty urinating. If she develops a scar contracture and painful symptomatology, she can followup in my office to discuss operative debridement and skin grafting. She takes nutritional supplementation with protein to help the healing process. Encouraged the patient to stop smoking as it may have deleterious effects on wound healing. Followup on an as needed basis.
== END 2017-11-05 23:59 ==
LOC: WC 10:55
PROVIDERS: Family Provider Family Medicine; PCP Family Medicine; Visit Provider Surgery
DX: L73.2 Hidradenitis suppurativa (principal); F17.200 Nicotine dependence, unspecified, uncomplicated
CPT/HCPCS: 99213; G0463

== ENCOUNTER → 2017-12-13 19:53 | Outpatient (CLI) | payer MEDICAID, SELFPAY ==
[2017-12-18 12:13] LABS: HPV Reflexed? NOT INDICATED
== END ==
PROVIDERS: Visit Provider Obstetrics & Gynecology
DX: Z12.4 Encounter for screening for malignant neoplasm of cervix (principal)
CPT/HCPCS: 88175; G0145

== ENCOUNTER 2018-11-12 18:12 | Emergency (ER) | payer MEDICAID, SELFPAY ==
[2018-11-12 18:13] VITALS: BP 129/78; PULSE 102; RESP 19; TEMP 36.9; O2SAT 97; BMI 35.2
--- NOTE | 2018-11-12 18:35 | CT_ITS ---
STUDY: CT BRAIN WITHOUT CONTRAST REASON FOR EXAM: Female, 38 years old. Numbness RADIATION DOSAGE (If Supplied By Facility): DLP = ( 796.11 ) mGycm TECHNIQUE: Transaxial CT imaging of the brain was performed without administration of intravenous contrast material. Individualized dose optimization techniques were used for this CT. COMPARISON: CT brain August 07, 2012 FINDINGS: There is no acute bleed or infarct. There are normal white matter tracts. The ventricles are normal in configuration. There is no hydrocephalus. The visualized paranasal sinuses are clear. The mastoid air cells are well aerated. There is no skull fracture. CT/Brain/Head without Contrast IMPRESSION: No acute intracranial abnormality. Electronically Signed: Edwin Aguero, at 19:07 EDT Tel , Service support ,
[2018-11-12 18:49] LABS: Absolute Lymphocyte Count 2.68 X10^3/uL (0.83-4.51); Absolute Neutrophil Count 5.3 X10^3/uL (2.0-7.7); Basophil# 0.04 X10^3/uL; Basophil% 0.5 % (0-1); Eosinophil# 0.24 X10^3/uL; Eosinophils% 2.7 % (0-5); Hematocrit 38.6 % (37-47); Hemoglobin 13.3 g/dL (12.0-15.0); Lymphocyte # 2.68 X10^3/ul (4.0); Lymphocyte % 30.3 % (19-41); Mean Corp Hgb Conc 34.5 g/dL (32-36); Mean Corpuscular Hgb 30.9 pg (27.0-32.0); Mean Corpuscular Volume 89.8 fL (81-99); Mean Platelet Vol. 8.9 fl (6.2-12.0); Monocyte# 0.54 X10^3/uL; Monocyte% 6.1 % (0-10); NRBC Flagged by Analyzer 0 % (0-5); Neutrophil % 59.8 % (47-70); Platelet Count 365 K/mm3 (150-450); RBC Distribution Width CV 12.5 % (11.6-14.6); RBC Distribution Width SD 40.5 fl (35.1-43.9); White Blood Count 8.9 K/mm3 (4.4-11.0)
[2018-11-12 19:01] LABS: Anion Gap 6 (5-15); BUN 17 mg/dL (7-18); BUN/Creat Ratio 19.5 RATIO (10-20); Calcium,Total 8.9 mg/dL (8.5-10.1); Chloride 105 mmol/L (98-107); Creatinine, Serum 0.87 mg/dL (0.55-1.02); EST Glomerular Filtration Rate 77 mL/min (>60); Est Glom Filt Rate - Afr Amer 93 mL/min (>60); Estimated Creatinine Clearance 62.36 ml/min; Glucose 96 mg/dL (74-106); Potassium 3.8 mmol/L (3.5-5.1); Sodium Level 139 mmol/L (136-145)
[2018-11-12 19:59] VITALS: BP 116/91; PULSE 80; RESP 18; O2SAT 97
--- NOTE | 2018-11-12 20:32 | ED.DCSUM_ITS ---
- ER Visit Summary Date of Service: 11/12/18 Chief Complaint: Numbness History of Present Illness: The patient is a 38 F with numbness that started this morning. The numbness is around her mouth and bilateral face. She reports a recent viral illness. She reports decreased taste. She was seen in urgent c are and was referred to the ED for possible Guyon Stuart? syndrome. She also reports bilateral hand numbness that started on the way for evaluation this evening. Patient has a history of smoking and hyperlipidemia. She does not take hormones. No other medical history. No other associated symptoms like visual changes, facial droop, focal/unilateral weakness or numbness. Physical Examination: Afebrile and vital signs unremarkable. Left eyelid is slightly weaker than the right. Left forehead shows slightly less wrinkles. Left mouth shows an abnormal labial fold with her smile. Skin and ears unremarkable. Patient has subjective paresthesias to her bilateral hands. Otherwise her exam is unremarkable. Test Results: See below Emergency Department Course and Treatment: Patient symptoms were very mild and subtle. I did check CBC, BMP, and CT brain which were all unremarkable. I had a suspicion for Stanton's palsy. Patient was monitored while awaiting results. On reevaluation, she is having much more pronounced weakness of her left eye and left face. 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 She was treated with acyclovir, prednisone. She was given eye precautions. Patient was also advised to follow-up later in the week for recheck including blood sugar recheck. She was advised she can return for new or worsening symptoms right away to the ER. Treatment Plan: As above Disposition: Discharge Impression: 1. Stanton's palsy This note was generated with [employer] dictation software. It may contain incorrect words, spelling, and punctuation that were not noted in review of the chart prior to signing ED Disposition - Plan for ED Patient: Referrals: Care Physician,No Primary [Primary Care Provider] -
--- NOTE | 2018-11-12 20:35 | ED.DEP ---
ED Disposition - Plan for ED Patient: Instructions: Stanton's Palsy Prescriptions: Acyclovir 1 tab PO 5X/DAY #35 tab Prescription Printed Prednisone 10 mg PO UD #33 tab Prescription Printed Referrals: Little Rodriguez [NON-STAFF] -
[2018-11-12 20:43] VITALS: BP 107/80; PULSE 85; RESP 18
[2018-11-12] MEDS: Acyclovir 200 MG Capsule 400 MG PO (20:44)
[2018-11-12] MEDS: predniSONE 20 MG Tablet 40 MG PO (20:44)
== END 2018-11-12 20:53 | disposition home or self-care (01) ==
LOC: ED 18:49
PROVIDERS: Emergency Provider Emergency Medicine
DX: G51.0 Bell's palsy (principal); E78.5 Hyperlipidemia, unspecified; F17.200 Nicotine dependence, unspecified, uncomplicated
CPT/HCPCS: 70450; 80048; 85025; 99283; A4216

== ENCOUNTER 2019-03-02 21:17 | Emergency (ER) | payer MEDICAID, SELFPAY ==
[2019-02-05 15:18] VITALS: BMI 35.2
[2019-03-02 21:17] VITALS: BP 144/95; PULSE 112; RESP 16; TEMP 37; O2SAT 97; BMI 36.3
--- NOTE | 2019-03-02 22:19 | CT_ITS ---
STUDY: CT PELVIS WITH CONTRAST REASON FOR EXAM: Female, 38 years old. PULSATING FEELING IN RT GROIN AREA,HIP PAIN ALL DAY HX:DIABETES,HIDRATENITIS RADIATION DOSAGE (If Supplied By Facility): CTDIvol = ( 28.21 ) mGy, DLP = ( 2019.24 ) mGycm TECHNIQUE: Transaxial imaging of the pelvis was performed without oral contrast. IV 100mL Isovue-300 100ML was administered intravenously. Individualized dose optimization techniques were used for this CT. COMPARISON: None. FINDINGS: Normal urinary bladder. Normal visualized small intestine. Normal visualized colon. Normal appendix. There is no pelvic fluid. There is no pelvic lymphadenopathy or mass lesion. Unremarkable visualized uterus. Normal visualized pelvic arteries. Normal abdominal wall. No visualized aneurysm or fluid collection or enlarged lymph node of the inguinal regions. No visualized inguinal hernias. Normal osseous structures. No demonstrated hip or pelvic fractures or destructive bony process. No significant degenerative changes of the joints. CT/Pelvis WITH IV Contrast IMPRESSION: 1. No demonstrated acute or significant process of the pelvis. Electronically Signed: Oul Guardado MD at 23:22 EST , Service support ,
--- NOTE | 2019-03-02 22:38 | ED.VIS.GEN ---
History of Present Illness Chief Complaint: General Illness Informant: Patient Onset: Today Context: Gradual Onset Timing: Continuous Current Severity: Moderate Maximum Severity: Moderate Narrative: The patient presents to the emergency department with a pulsing sensation in her groin. Patient has a history of hidradenitis. Her last surgery was in 2017. She states that the area where she had her surgical procedure, she will feel an intermittent pulsing sensation. She thought it was secondary to muscle spasm. She took Flexeril with no improvement. She denies any fevers or chills. She denies any other systemic symptoms. She has not had trauma to the area. She is still able to ambulate. Prior similar symptoms: No Recent Illness/Hospitalization: No Past Medical History - Allergies and Home Meds Allergies/Adverse Reactions: Allergies adhesive tape Allergy (Verified 02/05/19 15:08) Rash Primary Care Physician: Care Physician,No Primary [Primary Care Provider] - Prior records reviewed: Yes Past Medical History: - - Hidradenitis Surgical History: - - Hidradenitis surgery Smoking Status: Current every day smoker Review of Systems General: Denies: Chills, Fever, Sweats Eyes: Denies: Visual changes - bilaterally, Diplopia ENT: Denies: Rhinorrhea, Sore throat Cardiovascular: Denies: Chest pain, Palpitations Respiratory: Denies: Dyspnea, Cough, Dyspnea on exertion Gastrointestinal: Denies: Abdominal pain, Nausea, Vomiting, Diarrhea, Melena, Hematochezia Genitourinary: Denies: Dysuria, Hematuria, Frequency Musculoskeletal: Denies: Back pain, Extremity Pain Skin: Denies: Rash, Wounds Neurological: Denies: Headache, Weakness, Numbness Physical Exam Vital Signs/Narrative: Vital Signs Temp Pulse Resp BP Pulse Ox 03/02/19 21:17 98.6 F 112 H 16 144/95 H 97 Inital Vital Signs reviewed: Yes General: Well nourished, Well developed, No Acute Distress Head: Normocephalic, Atraumatic Eyes: Perrl, EOMI ENT: Moist mucous membranes, No rhinorrhea Neck: Supple, Nontender Cardiovascular: Regular rate, Regular rhythm, No murmurs Respiratory: No distress, CTA bilaterally, Chest nontender Abdomen: Soft, Nontender, Nondistended, Normal bowel sounds Back: Nontender, Normal Inspection Extremities: No edema, Tenderness - Very minimal tenderness in the right groin. There is no lymphadenopathy. The pulses are normal. Skin: Normal color, No rash Neurological: Alert, Oriented x3, Cranial nerves II-XII grossly intact, Normal Strength, Normal Sensation Psychological: Normal affect, Normal Mood Diagnostic/Tx/Re-eval Clinical Impression(s) from Imaging Studies Pelvis CT 03/02/19 22:19 IMPRESSION: 1. No demonstrated acute or significant process of the pelvis. Electronically Signed: Olu Guardado MD at 23:22 EST , Service support , Abnormal Lab Results 03/02/19 03/02/19 03/02/19 22:35 22:35 22:35 WBC 12.2 H RBC 4.50 Hgb 13.9 Hct 40.8 MCV 90.7 MCH 30.9 MCHC 34.1 RDW Std Deviation 41.0 RDW Coeff of Alonso 12.5 Plt Count 335 MPV 8.9 Immature Gran % (Auto) 0.400 Neut % (Auto) 61.1 Lymph % (Auto) 30.9 Leon % (Auto) 5.2 Eos % (Auto) 2.1 Baso % (Auto) 0.3 Absolute Neuts (auto) 7.5 Absolute Lymphs (auto) 3.78 Nucleated RBC % 0 Sodium 141 Potassium 3.8 Chloride 106 Carbon Dioxide 29.0 Anion Gap 6 BUN 13 Creatinine 0.67 Estim Creat Clear Calc 80.97 Est GFR (MDRD) Af Amer 126 Est GFR (MDRD) Non-Af 104 BUN/Creatinine Ratio 19.5 Glucose 104 Calcium 9.7 Urine Color Yellow Urine Clarity Cloudy Urine pH 7.0 Ur Specific [place] 1.015 Urine Protein 100 H Urine Glucose (UA) Normal Urine Ketones Negative Urine Occult Blood Negative Urine Nitrite Negative Urine Bilirubin Negative Urine Urobilinogen Normal Ur Leukocyte Esterase Negative Urine RBC 0 SEEN Urine WBC 0 SEEN Ur Squamous Epith Cells 0 SEEN Amorphous Sediment 2+ Urine Bacteria 0 SEEN Urine Mucus 0 SEEN Urine Test Negative - Medical Decision Making The patient presents with a buzzing in her right groin. She has a normal pulse. The skin is intact. She is had multiple surgeries in the area for hidradenitis. Really do not suspect an acute vascular process. There is no palpable thrill. She is not had any arterial intervention in the past. She has normal distal pulses. Screening labs are obtained. She has mild leukocytosis but otherwise these are unremarkable. Patient underwent CT of the pelvis with IV contrast. There is no evidence of infectious or dangerous process within the pelvis or groin. My suspicion is that she likely irritated scar tissue. Patient was reassured. At this point, I do feel that she is safe for outpatient therapy. Impression 1. Right groin strain ED Disposition - Plan for ED Patient: Instructions: Groin Strain Referrals: Care Physician,No Primary [Primary Care Provider] -
[2019-03-02] MEDS: 0.9% Normal Saline 1,000 ML 1000 ML IV (22:41)
[2019-03-02 22:46] LABS: Bacteria 0 SEEN /hpf (None Seen); Mucous, Urine 0 SEEN /hpf (<or=2+); Red Blood Cells-Urine 0 SEEN /hpf (0-5); Squamous Epithelial Cells - UA 0 SEEN /hpf (5-10); White Blood Cells 0 SEEN /hpf (0-5)
[2019-03-02 22:48] LABS: Absolute Lymphocyte Count 3.78 X10^3/uL (0.83-4.51); Absolute Neutrophil Count 7.5 X10^3/uL (2.0-7.7); Basophil# 0.04 X10^3/uL; Basophil% 0.3 % (0-1); Eosinophil# 0.26 X10^3/uL; Eosinophils% 2.1 % (0-5); Hematocrit 40.8 % (37-47); Hemoglobin 13.9 g/dL (12.0-15.0); Lymphocyte # 3.78 X10^3/ul (4.0); Lymphocyte % 30.9 % (19-41); Mean Corp Hgb Conc 34.1 g/dL (32-36); Mean Corpuscular Hgb 30.9 pg (27.0-32.0); Mean Corpuscular Volume 90.7 fL (81-99); Mean Platelet Vol. 8.9 fl (6.2-12.0); Monocyte# 0.63 X10^3/uL; Monocyte% 5.2 % (0-10); NRBC Flagged by Analyzer 0 % (0-5); Neutrophil # 7.47 X10^3/uL (2.7-7.7); Neutrophil % 61.1 % (47-70); Platelet Count 335 K/mm3 (150-450); RBC Distribution Width CV 12.5 % (11.6-14.6); White Blood Count 12.2 K/mm3 (4.4-11.0)
[2019-03-02 22:50] LABS: Color, Urine Yellow (Yellow); Glucose, Dipstick Normal (Normal); Ketone-Dipstick Negative (Negative); Leukocyte Esterase-Dipstick Negative /ul (Negative); Nitrite-Dipstick Negative (Negative); Occult Blood-Urine Negative /ul (Negative); Protein-Dipstick 100 mg/dl (Negative); Specific Gravity, Urine 1.015 (1.002-1.030); Urine Bilirubin Dipstick Negative (Negative); Urine Clarity Cloudy (Clear); Urine Urobilinogen Normal (Normal)
[2019-03-02 22:53] LABS: Internal QC Validated? YES +Cl - CLEAR BKGD; Pregnancy, Urine Negative Negative
[2019-03-02 22:59] LABS: Amorphous Sediment 2+
[2019-03-02 23:02] LABS: Anion Gap 6 (5-15); BUN 13 mg/dL (7-18); BUN/Creat Ratio 19.5 RATIO (10-20); Calcium,Total 9.7 mg/dL (8.5-10.1); Chloride 106 mmol/L (98-107); Creatinine, Serum 0.67 mg/dL (0.55-1.02); EST Glomerular Filtration Rate 104 mL/min (>60); Est Glom Filt Rate - Afr Amer 126 mL/min (>60); Estimated Creatinine Clearance 80.97 ml/min; Glucose 104 mg/dL (74-106); Potassium 3.8 mmol/L (3.5-5.1); Sodium Level 141 mmol/L (136-145)
[2019-03-02 23:17] VITALS: BP 110/78; PULSE 86; RESP 15; O2SAT 97
[2019-03-02 23:37] VITALS: RESP 15
== END 2019-03-02 23:38 | disposition home or self-care (01) ==
PROVIDERS: Emergency Provider Emergency Medicine
DX: S39.011A Strain of muscle, fascia and tendon of abdomen, initial encounter (principal); F17.210 Nicotine dependence, cigarettes, uncomplicated
CPT/HCPCS: 72193; 80048; 81001; 81025; 85025; 96360; 99284; J7030; Q9967; A4216

== ENCOUNTER → 2019-04-10 14:05 | Outpatient (CLI) | payer MEDICAID, SELFPAY | PROVIDERS: Referring Provider Surgery; Visit Provider Surgery | DX: Z00.00 Encounter for general adult medical examination without abnormal findings (principal) ==

== ENCOUNTER 2020-01-10 13:19 | Emergency (ER) | payer MEDICAID, SELFPAY ==
[2020-01-10 13:20] VITALS: BP 125/91; PULSE 95; RESP 16; TEMP 36.4; O2SAT 99; BMI 37.4
--- NOTE | 2020-01-10 13:37 | RAD_ITS ---
STUDY: X-RAY - RIGHT ANKLE REASON FOR EXAM: Female, 39 years old. rolled her ankle. pain lateral, no swelling TECHNIQUE: 3 view(s) of the ankle. COMPARISON: None. FINDINGS: Normal visualized distal tibia and fibula. Normal medial and lateral malleoli. Normal tibiotalar articulation and ankle mortise. Normal visualized talus and calcaneus. The visualized subtalar, talonavicular, calcaneocuboid and tarsal articulations are normal. The soft tissue structures are unremarkable. RAD/Ankle min 3 Views IMPRESSION: No fracture or malalignment. Electronically Signed: Minor Rapp MD ([place]) at 14:02 EDT , Service support ,
--- NOTE | 2020-01-10 13:38 | ED.VIS.GEN ---
History of Present Illness Chief Complaint: Lower Extremity Injury Informant: Patient Onset: Yesterday Current Severity: Mild Maximum Severity: Mild Narrative: Right ankle injury yesterday missed stepped on stairs, twisted the right ankle has pain laterally, no other complaints Past Medical History - Allergies and Home Meds Allergies/Adverse Reactions: Allergies adhesive tape Allergy (Verified 01/10/20 13:22) Rash Primary Care Physician: Wna Pino MD [NON-STAFF] - Care Physician,No Primary [Primary Care Provider] - Past Medical History: None Surgical History: - - Hidradenitis surgery Smoking Status: Current every day smoker Review of Systems General: Denies: Chills, Fever, Sweats Eyes: Denies: Visual changes - bilaterally, Diplopia ENT: Denies: Rhinorrhea, Sore throat Cardiovascular: Denies: Chest pain, Palpitations Respiratory: Denies: Dyspnea, Cough, Dyspnea on exertion Gastrointestinal: Denies: Abdominal pain, Nausea, Vomiting, Diarrhea, Melena, Hematochezia Genitourinary: Denies: Dysuria, Hematuria, Frequency Musculoskeletal: Reports: Extremity Pain. Denies: Back pain Skin: Denies: Rash, Wounds Neurological: Denies: Headache, Weakness, Numbness Physical Exam Vital Signs/Narrative: Vital Signs Temp Pulse Resp BP Pulse Ox 01/10/20 13:20 97.5 F L 95 16 125/91 H 99 General: Well nourished, Well developed, No Acute Distress Head: Normocephalic, Atraumatic Eyes: Perrl, EOMI ENT: Moist mucous membranes, No rhinorrhea Neck: Supple, Nontender Cardiovascular: Regular rate, Regular rhythm, No murmurs Respiratory: No distress, CTA bilaterally, Chest nontender Abdomen: Soft, Nontender, Nondistended, Normal bowel sounds Back: Nontender, Normal Inspection Extremities: No edema, - - Patient has tenderness over the lateral malleolus right ankle, dorsi and plantar flexion limited by pain but intact foot nontender tib-fib knee hip unremarkable skin intact Skin: Normal color, No rash Neurological: Alert, Oriented x3, Cranial nerves II-XII grossly intact, Normal Strength, Normal Sensation Psychological: Normal affect, Normal Mood Diagnostic/Tx/Re-eval - Medical Decision Making X-ray pain management Per radiology the x-ray shows no acute injury see that report, discussed this with the patient she understands the concept of health injury 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
[2020-01-10] MEDS: HYDROcodone Bitartrate/Apap 5/325 Tablet PO (13:43)
[2020-01-10] MEDS: Naproxen 500 MG Tablet PO (13:43)
== END 2020-01-10 15:17 | disposition home or self-care (01) ==
LOC: ED 14:10
PROVIDERS: Emergency Provider Emergency Medicine
DX: S93.401A Sprain of unspecified ligament of right ankle, initial encounter (principal); F17.200 Nicotine dependence, unspecified, uncomplicated; X50.1XXA Overexertion from prolonged static or awkward postures, initial encounter; Y93.01 Activity, walking, marching and hiking; Y92.89 Other specified places as the place of occurrence of the external cause; Y99.8 Other external cause status
CPT/HCPCS: 73610; 99285

== ENCOUNTER 2020-03-24 14:30 | Outpatient (RCR) | payer MEDICAID, SELFPAY | END 2020-03-24 19:00 | disposition home or self-care (01) | LOC: PT 14:30 | PROVIDERS: Referring Provider Podiatrist Foot & Ankle Surgery; Visit Provider Podiatrist Foot & Ankle Surgery | DX: S93.401D Sprain of unspecified ligament of right ankle, subsequent encounter (principal); M76.821 Posterior tibial tendinitis, right leg | CPT/HCPCS: 97110; 97161 ==